=== PATIENT | female | born 1950 | race Caucasian/White ===

== ENCOUNTER → 2016-04-10 | Outpatient (CLI) | payer BC ==
[~2016-04-10] MED LIST: ABL/5 PO; ABL5 PO; ATV1 PO; BUPR-79 PO; CALC-51 PO; CALCTAB5 PO; CHOL1000 PO; LEVO137T3 PO; MULT-506 PO; OXYC1TAB3 PO; PANT40TA PO; PROM25TA PO; SYN150 PO
[2016-04-10 11:44] LABS: BASO % 0.1 %; BASO ABS # 0.01 K/uL (0-0.2); COMPLETE YES; EOS % 0.7 %; HEMATOCRIT 46.3 % (37-47); IG% 0.1 %; LYMPH % 29.4 %; LYMPH ABS # 2.02 K/uL (1.2-3.4); MEAN CELL VOLUME 86.7 fL (80-100); MEAN CORPUSCULAR HEMOGLOBIN 28.7 pg (25-34); MONO % 8.2 %; NEUT % 61.5 %; PLATELET COUNT 255 K/uL (130-400); RED BLOOD COUNT 5.34 M/uL (4.2-5.4); WHITE BLOOD COUNT 6.86 K/uL (4.8-10.8)
[2016-04-10 12:12] LABS: ALT/SGPT 32 U/L (12-78); BLOOD UREA NITROGEN 19 mg/dl (7-18); BUN/CREATININE RATIO 29.8 (10-20); CALCIUM 8.8 mg/dl (8.5-10.1); CARBON DIOXIDE 26 mmol/L (21-32); CHLORIDE 106 mmol/L (98-107); CHOLESTEROL 195 mg/dl (0-200); CREATININE 0.64 mg/dl (0.60-1.20); GLUCOSE 83 mg/dl (70-99); POTASSIUM 3.6 mmol/L (3.5-5.1); SODIUM 143 mmol/L (136-145); TRIGLYCERIDES 89 mg/dl (0-150); VERY LOW DENSITY LIPOPROT CALC 18 mg/dl
[2016-04-10 12:20] LABS: ESTIMATED AVERAGE GLUCOSE 117 mg/dl; HA1C FLAG Normal (Normal)
[2016-04-10 12:23] LABS: ALB/GLOB RATIO 1.2 (0.9-2); ALKALINE PHOSPHATASE 79 U/L (45-117); AST/SGOT 13 U/L (15-37); CHOLESTEROL/HDL RATIO 3.4; HDL CHOLESTEROL 58 mg/dl; LDL CHOLESTEROL CALCULATED 119 mg/dl; THYROID STIMULATING HORMONE 0.171 uIu/ml (0.300-4.500)
== END | disposition home or self-care (01) ==
LOC: C.LAB1850 10:36
PROVIDERS: ATTEND Internal Medicine Geriatric Medicine
DX: Z00.00 Encounter for general adult medical examination without abnormal findings (principal); R73.01 Impaired fasting glucose; C73 Malignant neoplasm of thyroid gland

== ENCOUNTER → 2016-05-02 | Outpatient (CLI) | payer BC | END | disposition home or self-care (01) | LOC: C.MAMM 07:56 | PROVIDERS: ATTEND Internal Medicine | DX: M81.0 Age-related osteoporosis without current pathological fracture (principal); M85.39 Osteitis condensans, multiple sites ==

== ENCOUNTER 2016-08-10 19:15 | Emergency (ER) | payer BC ==
[~2016-08-10] VITALS: Ht 162.6 cm; Wt 74.8 kg
[~2016-08-10 19:15] MED LIST changes: -ABL/5 PO; -CALC-51 PO; -CHOL1000 PO; -LEVO137T3 PO
[2016-08-10 19:20] VITALS: BP 165/73; PULSE 88; TEMP 36.7; O2SAT 95; Ht 162.6 cm; Wt 74.8 kg
--- NOTE | 2016-08-10 19:56 | DIAGNOSTIC IMAGING REPORT ---
LEFT FOREARM 2 VIEWS ROUTINE CLINICAL HISTORY: Left wrist pain s/p fall COMPARISON: None FINDINGS: There is an acute impacted minimally displaced fracture of the distal metaphysis of the left radius. There is no acute fracture of the left ulna. Alignment of left elbow is anatomic. There is no left elbow joint effusion. IMPRESSION: Acute impacted minimally displaced fracture of the distal metaphysis of the left radius. Electronically signed by: Joey Hubbard M.D. 08/10/2016 7:55 PM Dictated Date/Time: 08/10/2016 7:53 PM
--- NOTE | 2016-08-10 19:58 | DIAGNOSTIC IMAGING REPORT ---
LEFT HAND MIN 3 VIEWS ROUTINE CLINICAL HISTORY: Left hand pain COMPARISON: None FINDINGS: There is an acute impacted minimally displaced fracture of the distal metaphysis of the left radius. There is no acute fracture within the left hand. Carpal bones are intact. 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 IMPRESSION: Acute minimally displaced impacted distal left radial fracture. Electronically signed by: Joey Hubbard M.D. 08/10/2016 7:56 PM Dictated Date/Time: 08/10/2016 7:55 PM
[2016-08-10] MEDS ORDERED: IBUPROFEN 600 MG TAB PO STA (19:59)
[2016-08-10] MEDS ORDERED: ABL/5 PO (20:03)
[2016-08-10] MEDS ORDERED: CALC-51 PO ×2 (20:06)
[2016-08-10] MEDS ORDERED: LEVO137T3 PO (20:07)
[2016-08-10] MEDS ORDERED: CHOL1000 PO (20:10)
--- NOTE | 2016-08-10 20:18 | EMERGENCY ROOM VISIT NOTE ---
History First contact with patient: 19:25 Chief Complaint: WRIST PAIN Stated Complaint: HURT L WRIST History of Present Illness The patient is a 65 year old female who presents to the Emergency Room via private vehicle with complaints of "hurt left wrist". The patient states that earlier today, between 5 and 530 p.m. she was outside of the [employer] in [place], and fell over a cement barrier. She states that she has pain in her left hand and forearm region. This pain is worse with movement. Her tetanus is up-to-date. She also notes a small abrasion to the right anterior knee. She denies striking her head, or head pain. Review of Systems A complete 6-point Review of Systems was discussed with the patient, with pertinent positives and negatives listed in the History of Present Illness. All remaining Review of Systems questions can be considered negative unless otherwise specified. Past Medical/Surgical History No pertinent past medical history. Family History No pertinent family history. Social History Smoking Status: Never Smoker Social History: Patient lives locally. Current/Historical Medications Scheduled Aripiprazole (Abilify), 5 MG PO Q2D Bupropion (Wellbutrin Sr), 150 MG PO DAILY Cholecalciferol (Vitamin D3), 1 TAB PO BID Levothyroxine Sodium (Levothyroxine Sodium), 1 TAB PO DAILY Multivitamin (Multivitamin), 1 TAB PO DAILY [Calcium], 2 TABS PO QAM [Calcium], Unknown Dose PO QPM Allergies Coded Allergies: Aspirin (Verified Allergy, Unknown, 08/10/16) Physical Exam Vital Signs Date Time Temp Pulse Resp B/P (MAP) Pulse Ox O2 Delivery O2 Flow Rate FiO2 08/10/16 19:20 36.7 88 18 165/73 95 Room Air Physical Exam VITAL SIGNS - Vital signs and nursing notes were reviewed. Patient is afebrile , hypertensive at 165/73, nontoxic tachycardic and saturating well on room air 95%. GENERAL -65-year-old female appearing her stated age who is in no acute distress. Communicates well with provider and answers questions appropriately. SKIN - Without rashes. There is a small abrasion to the right anterior knee. The skin overlying the left wrist is edematous and erythematous. Skin is intact. EXTREMITIES - No clubbing or peripheral cyanosis. No pretibial edema present. She is neurovascularly intact in her upper extremity. There is edema noted to the right left wrist. There is tenderness to palpation overlying the left wrist joint. No other tenderness noted. +5/5 strength noted in UE/LE bilaterally. Medical Decision & Procedures ER Provider Diagnostic Interpretation: LEFT FOREARM 2 VIEWS ROUTINE CLINICAL HISTORY: Left wrist pain s/p fall COMPARISON: None FINDINGS: There is an acute impacted minimally displaced fracture of the distal metaphysis of the left radius. There is no acute fracture of the left ulna. Alignment of left elbow is anatomic. There is no left elbow joint effusion. IMPRESSION: Acute impacted minimally displaced fracture of the distal metaphysis of the left radius. Electronically signed by: Joey Hubbard M.D. 08/10/2016 7:55 PM Dictated Date/Time: 08/10/2016 7:53 PM LEFT HAND MIN 3 VIEWS ROUTINE CLINICAL HISTORY: Left hand pain COMPARISON: None FINDINGS: There is an acute impacted minimally displaced fracture of the distal metaphysis of the left radius. There is no acute fracture within the left hand. Carpal bones are intact. 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 IMPRESSION: Acute minimally displaced impacted distal left radial fracture. Electronically signed by: Joey Hubbard M.D. 08/10/2016 7:56 PM Dictated Date/Time: 08/10/2016 7:55 PM Medications Administered Medications (Trade) Dose Ordered Sig/Judy Route Start Time Stop Time Status Last Admin Dose Admin Ibuprofen (Motrin Tab) 600 mg NOW STAT PO 08/10/16 19:59 08/10/16 20:10 DC 08/10/16 20:10 600 MG Medical Decision Patient was seen and evaluated as above. After obtaining a thorough history and physical examination radiographs were obtained of the affected region. She initially declined pain medication. She did have ice. Radiograph does reveal any acute impact fracture of the left distal radius. She was given 600 mg of ibuprofen, which was ordered by another provider. She stated that this was okay. She was fitted with a volar splint. She is to follow-up with orthopedics by calling them tomorrow. Number was provided. She is neurovascularly intact. No other injuries noted. She was educated upon management, educated upon worrisome symptoms which to return, had questions answered prior to discharge, and was discharged home in good condition.. In the evaluation and treatment of this patient, the following differential diagnoses were considered: Wrist Sprain, Wrist Fracture, Wrist Dislocation, Scapholunate Dissociation, Carpal Fracture, Metacarpal Fracture, Radial Styloid Process Fracture, Ulnar Styloid Process Fracture, or Carpal Tunnel Syndrome. Impression Primary Impression: Distal radius fracture, left Departure Information Dispostion Home / Self-Care Condition GOOD Referrals Mehdi Webster M.D. Forms WORK / SCHOOL INSTRUCTIONS, HOME CARE DOCUMENTATION FORM, IMPORTANT VISIT INFORMATION Patient Instructions My [facility] [place] Additional Instructions You have been treated in the Emergency Department for Wrist Pain. For pain control, you can use the following [id number] medicines (if >12 yo): - Regular strength (325mg/tab) Tylenol (acetaminophen) 2 tabs every 4-6 hours as needed. Do not exceed 12 tablets in a 24 hour period. Avoid taking more than 3 grams (3000 mg) of Tylenol per day. This includes any other sources of acetaminophen you may take on a regular basis. - Regular strength (200 mg/tab) Advil (ibuprofen) 1-2 tabs every 4-6 hours as needed. Do not exceed a dose of 3200 mg per day. If this is a recent injury (<24 hrs), ice can be applied to the area of pain for the first 3 days to help decrease pain and inflammation. You have been provided the number for an Orthopaedic Surgeon. You should call this number as soon as possible to establish a follow-up visit from today's Emergency Department visit. Keep the brace/splint in place until evaluated by Orthopedics. Return to the Emergency Department if your current symptoms worsen despite treatment course outlined above, or if you develop any of the following symptoms : intractable pain despite aforementioned treatment course or new onset of numbness or tingling of the fingers. Please return to the emergency department with any new/concerning symptoms. Problem Qualifiers Primary Impression: Distal radius fracture, left Encounter type: initial encounter Fracture type: closed
== END 2016-08-10 20:46 | disposition home or self-care (01) ==
LOC: C.EDB 19:22 → C.EDD 20:46
DX: S52.502A Unspecified fracture of the lower end of left radius, initial encounter for closed fracture (principal); S80.211A Abrasion, right knee, initial encounter; W18.09XA Striking against other object with subsequent fall, initial encounter; Z79.899 Other long term (current) drug therapy

== ENCOUNTER → 2016-08-11 | Outpatient (CLI) | payer BC ==
[~2016-08-11] MED LIST changes: +ABL/5 PO; -ABL5 PO; -ATV1 PO; +CALC-51 PO; -CALCTAB5 PO; +CHOL1000 PO; +LEVO137T3 PO; -OXYC1TAB3 PO; -PANT40TA PO; -PROM25TA PO; -SYN150 PO
--- NOTE | 2016-08-11 14:31 | DIAGNOSTIC IMAGING REPORT ---
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 Transverse fracture distal radius is again noted. Alignment is anatomic. No evidence of dislocation. There is no evidence for soft tissue swelling. IMPRESSION: Anatomic alignment status post cortical fracture distal radius. Electronically signed by: Paco Ba M.D. 08/11/2016 2:30 PM Dictated Date/Time: 08/11/2016 2:28 PM
--- NOTE | 2016-08-11 14:36 | DIAGNOSTIC IMAGING REPORT ---
RIGHT WRIST MIN 3 VIEWS ROUTINE CLINICAL HISTORY: BILATERAL WRIST PAIN Right COMPARISON: None. DISCUSSION: Considerable degenerative change first carpometacarpal joint. Mild degenerative change of the intercarpal as well as radiocarpal joints. No evidence for fracture or dislocation. There is no evidence for soft tissue swelling. IMPRESSION: Severe degenerative change first carpometacarpal joint. Electronically signed by: Paco Ba M.D. 08/11/2016 2:35 PM Dictated Date/Time: 08/11/2016 2:34 PM
== END | disposition home or self-care (01) ==
LOC: C.RDSM 14:10
PROVIDERS: ATTEND Physician Assistant
DX: M25.531 Pain in right wrist (principal); M25.532 Pain in left wrist

== ENCOUNTER → 2016-08-21 | Outpatient (CLI) | payer BC ==
--- NOTE | 2016-08-21 14:11 | DIAGNOSTIC IMAGING REPORT ---
LEFT WRIST MIN 3 VIEWS ROUTINE CLINICAL HISTORY: LEFT WRIST FX fracture COMPARISON: 08/11/2016 DISCUSSION: Anatomic alignment status post fracture. Fracture distal radius is aligned anatomically. No evidence of dislocation. There is no evidence for soft tissue swelling. IMPRESSION: Anatomic alignment status post distal radial fracture. Electronically signed by: Paco Ba M.D. 08/21/2016 2:10 PM Dictated Date/Time: 08/21/2016 2:09 PM
== END | disposition home or self-care (01) ==
LOC: C.RDSM 13:55
PROVIDERS: ATTEND Physician Assistant
DX: S52.509A Unspecified fracture of the lower end of unspecified radius, initial encounter for closed fracture (principal); X58.XXXA Exposure to other specified factors, initial encounter

== ENCOUNTER → 2016-09-11 | Outpatient (CLI) | payer BC ==
--- NOTE | 2016-09-11 11:00 | DIAGNOSTIC IMAGING REPORT ---
LEFT WRIST MIN 3 VIEWS ROUTINE HISTORY:65 yearsFemaleLEFT DISTAL RADIUS FX COMPARISON: Left wrist radiographs 08/21/2016 TECHNIQUE: 3 views of left wrist FINDINGS: There is progressive healing callus formation of the distal radius fracture of the left wrist with persistent cortical buckling identified. Alignment is unchanged from comparison. There is background moderate bone demineralization. Multiple moderate carpal osteoarthritis is noted with moderate triscaphe and first digit carpometacarpal osteoarthritis as well. There is moderate soft tissue swelling about the wrist. IMPRESSION: 1. Progressive healing with unchanged alignment of the distal radial fracture. 2. Degenerative changes are seen about the wrist and first digit carpometacarpal joint. The above report was generated using voice recognition software. It may contain grammatical, syntax or spelling errors. Electronically signed by: Haroon Montes M.D. 09/11/2016 10:59 AM Dictated Date/Time: 09/11/2016 10:57 AM
== END | disposition home or self-care (01) ==
LOC: C.RDSM 10:28
PROVIDERS: ATTEND Physician Assistant
DX: S52.502D Unspecified fracture of the lower end of left radius, subsequent encounter for closed fracture with routine healing (principal); X58.XXXD Exposure to other specified factors, subsequent encounter

== ENCOUNTER → 2016-09-25 | Outpatient (CLI) | payer BC ==
--- NOTE | 2016-09-25 09:16 | DIAGNOSTIC IMAGING REPORT ---
LEFT WRIST MIN 3 VIEWS ROUTINE CLINICAL HISTORY: LEFT WRIST FX COMPARISON STUDY: Left wrist 09/11/2016. FINDINGS: Progressive sclerosis within the distal left radius fracture consistent with healing. The slight impaction remains unchanged. No change in the mild dorsal displacement. Diffuse soft tissue swelling, unchanged. Mild osteoarthritis at the radiocarpal, STT, and first carpometacarpal joint. The bones are osteopenic. IMPRESSION: Progressive healing and unchanged alignment of the distal radius fracture. Electronically signed by: Brian Lucero M.D. 09/25/2016 9:15 AM Dictated Date/Time: 09/25/2016 9:13 AM
== END | disposition home or self-care (01) ==
LOC: C.RDSM 14:59
PROVIDERS: ATTEND Physician Assistant
DX: S52.502D Unspecified fracture of the lower end of left radius, subsequent encounter for closed fracture with routine healing (principal); X58.XXXA Exposure to other specified factors, initial encounter

== ENCOUNTER → 2016-10-16 | Outpatient (CLI) | payer BC ==
--- NOTE | 2016-10-16 09:04 | DIAGNOSTIC IMAGING REPORT ---
LEFT WRIST MIN 3 VIEWS ROUTINE HISTORY: 65 years-old Female follow-up distal left radius fracture COMPARISON: Left wrist radiographs 09/25/2016 TECHNIQUE: 3 views of the left wrist FINDINGS: Bones are moderately demineralized. There is mildly progressive healing callus surrounding the fracture of the left distal radial metaphysis. Alignment is unchanged. There is again slight impaction. There is mild persistent soft tissue swelling about the wrist. Severe first carpometacarpal osteoarthritis with moderate triscaphe osteoarthritis noted. IMPRESSION: Mild progressive healing with unchanged alignment of the left distal radial fracture with persistent mild soft tissue swelling. The above report was generated using voice recognition software. It may contain grammatical, syntax or spelling errors. Electronically signed by: Haroon Montes M.D. 10/16/2016 9:03 AM Dictated Date/Time: 10/16/2016 9:01 AM
== END | disposition home or self-care (01) ==
LOC: C.RDSM 14:34
PROVIDERS: ATTEND Physician Assistant
DX: S52.502D Unspecified fracture of the lower end of left radius, subsequent encounter for closed fracture with routine healing (principal); X58.XXXD Exposure to other specified factors, subsequent encounter

== ENCOUNTER → 2016-11-27 | Outpatient (CLI) | payer BC ==
--- NOTE | 2016-11-27 12:34 | MAMMOGRAPHY REPORT ---
BILATERAL DIGITAL SCREENING MAMMOGRAM WITH CAD: 11/27/2016 CLINICAL HISTORY: Routine screening. Patient has no complaints. TECHNIQUE: Bilateral CC, MLO and repeat right MLO views were obtained. Current study was also evalua james with a Computer Aided Detection (CAD) system. COMPARISON: Comparison is made to exams dated: 11/25/2015 mammogram, 11/23/2014 mammogram, 11/21/2013 m ammogram, 11/20/2012 mammogram, 11/24/2011 mammogram, and 11/20/2011 mammogram - [facility] enter. BREAST COMPOSITION: The tissue of both breasts is heterogeneously dense, which may obscure small mas ses. FINDINGS: There is a 7 mm nodular asymmetry in the lateral posterior right breast, best seen on the CC view thought to project superiorly on the MLO view. Although this could represent normal overlapp ing fibroglandular tissue, additional spot compression tomosynthesis views and possibly ultrasound ar e recommended. A 10 mm focal asymmetry in the upper outer posterior left breast could represent a cy st. However, further evaluation with spot compression tomosynthesis views and possible ultrasound ar e recommended. There is evidence of prior surgery in the left breast. A few benign coarse calcifications bilaterall y. No other suspicious mass, architectural distortion or cluster of suspicious microcalcifications i s seen bilaterally. IMPRESSION: ACR BI-RADS CATEGORY 0: INCOMPLETE EVALUATION: NEED ADDITIONAL IMAGING EVALUATION The 7 mm nodular asymmetry in the lateral posterior right breast, and 10 mm focal asymmetry in the up per outer posterior left breast need additional imaging evaluation. The patient will be called to schedule an appointment. Approximately 10% of breast cancers are not detected with mammography. A negative mammographic report should not delay biopsy if a clinically suggestive mass is present. Lynette Bae M.D. ay/:11/27/2016 12:10:40 Intern Brand: Amanda ALCARAZ(Tiffany)(Jazmine)(BD), [facility] letter sent: Addl Imaging 0 BI-RADS Code: ACR BI-RADS Category 0: Incomplete Evaluation: Need Additional Imaging Evaluation
== END | disposition home or self-care (01) ==
LOC: C.MAMM 11:07
PROVIDERS: ATTEND Internal Medicine
DX: Z12.31 Encounter for screening mammogram for malignant neoplasm of breast (principal); N64.9 Disorder of breast, unspecified

== ENCOUNTER → 2016-12-06 | Outpatient (CLI) | payer BC ==
--- NOTE | 2016-12-06 13:39 | MAMMOGRAPHY REPORT ---
BILATERAL DIGITAL DIAGNOSTIC MAMMOGRAM TOMOSYNTHESIS AND TARGETED BILATERAL ULTRASOUND: 12/06/2016 CLINICAL HISTORY: 66-year-old woman called back from screening mammography for asymmetries in each la teral breast. History of prior left breast surgery. TECHNIQUE: Spot compression CC and MLO 2-D and tomosynthesis images of each breast were obtained. COMPARISON: Comparison is made to exams dated: 11/27/2016 mammogram, 11/25/2015 mammogram, 11/23/2014 m ammogram, 11/21/2013 mammogram, 11/20/2012 mammogram, and 11/24/2011 mammogram - [facility] enter. BREAST COMPOSITION: The tissue of both breasts is heterogeneously dense, which may obscure small mas ses. FINDINGS: On the spot compression tomosynthesis views of the right breast, there is persistence of a n asymmetry on the 2-D view, but no definite persistent mass or definite architectural distortion on the corresponding tomosynthesis images. There are other scattered benign-appearing round and oval ci rcumscribed subcentimeter masses throughout the right breast. No definite focal architectural distor tion or suspicious spiculated or irregular mass. The spot compression views and tomosynthesis images of the left breast demonstrate a persistent 8 x 1 3 mm bilobed circumscribed mass in the upper outer middle one third of the breast. No associated arc hitectural distortion or calcification. A few other scattered nodular areas are also seen in the lef t breast that have a benign appearance. Further evaluation with ultrasound was performed. Targeted ultrasound was performed in the left upper outer quadrant and throughout the lateral right b reast. In the 3:00 left breast, 8 cm from the nipple, there is a dominant circumscribed round mass m easuring 6.5 mm. It is prominently anechoic with internal echogenic debris and mild posterior acoust ic enhancement. This is adjacent to a possible cyst cluster measuring 9.9 mm in dimension. This is thought to correspond to the mammographic mass. Although it could represent a complicated cyst, give n the internal echoes within the dominant cystic component, definitive characterization with an ultra sound-guided core needle biopsy is recommended. A few other scattered subcentimeter anechoic cysts a re seen in the left breast, particularly in the 5:00 axis, 4 cm from the nipple and in the 5:00 axis, 2 cm from the nipple, also in the 6:00 axis 1 and 2 cm from the nipple. Scattered anechoic cysts are also seen throughout the right breast particularly in the 11:00 and 12:0 0 axes. However, no suspicious solid or cystic mass is seen. No definite correlate for the effacing asymmetry in the lateral breast. IMPRESSION: ACR BI-RADS CATEGORY 4: SUSPICIOUS, TARGETED ULTRASOUND ACR BI-RADS CATEGORY 4: SUSPICIO US 1. Ultrasound guided core needle biopsy is recommended for an indeterminate solid and cystic 13 mm m ass in the 3:00 left breast, thought to correlate with the mammographic mass. 2. Partial effacement of the right lateral posterior asymmetry with supplemental mammographic/tomosy nthesis views, and no suspicious sonographic correlate identified. Pending benign pathology results from the left breast ultrasound guided biopsy, would recommend follow-up right diagnostic tomosynthes is mammograms and possible ultrasound to ensure stability in 6 months. These results and recommendations were discussed with the patient at the time of the exam. She tenta tively scheduled the biopsy and follow-up appointment prior to leaving our department. Approximately 10% of breast cancers are not detected with mammography. A negative mammographic report should not delay biopsy if a clinically suggestive mass is present. Lynette Bae M.D. ay/:12/06/2016 12:24:46 Web Operations Administrator: Nicolette ALCARAZ(Tiffany)(M), [facility] letter sent: Abnormal 4/5 BI-RADS Code: ACR BI-RADS Category 4: Suspicious Ultrasound BI-RADS: ACR BI-RADS Category 4: Suspici ous
== END | disposition home or self-care (01) ==
LOC: C.MAMM 08:50
PROVIDERS: ATTEND Internal Medicine
DX: N64.9 Disorder of breast, unspecified (principal); N63.20 Unspecified lump in the left breast, unspecified quadrant

== ENCOUNTER → 2016-12-15 | Outpatient (CLI) | payer BC ==
--- NOTE | 2016-12-15 10:09 | Discharge Instructions ---
Discharge Instructions Procedure Procedure Date: Dec 15, 2016. Reason for visit: Left Mass. Discharge Discharge Date: Dec 15, 2016. Discharge Diagnosis: status post breast biopsy Instructions Activity Recommendations: Additional Limitations (see below) Return to School/Work: no limitations Recommended Home Diet: No Limitations Provider Instructions: ACTIVITY RECOMMENDATIONS: * No lifting, pushing, pulling or exercising the affected side for three days. RETURN TO SCHOOL/WORK: * You may return to work/school after the procedure, but do not perform any strenuous activities for 24 to 48 hours. MEDICATIONS: * Tylenol (two 325 mg) every four to six hours if needed for mild pain (if not allergic to Tylenol). DIET: * Resume previous diet. SPECIAL CARE INSTRUCTIONS: * Keep biopsy site dry for 24 hours. May shower after 24 hours, but do not soak (bathe) incision. * May remove Tegaderm (plastic patch) tomorrow AFTER showering. * Leave the steri-strips on for one week. Allow the steri-strips to fall off by themselves. If not off after one week, you may remove them. You may place a Bandaid crosswise over the strips, if desired. * Apply ice 10 minutes on and 10 minutes off as needed. * Wear a bra at bedtime to sleep more comfortably for 2-3 days. * Your referring physician should have the results after approximately 5 to 7 business days. * Call for unusual bleeding, fever, drainage, etc or if you have any questions call during normal business hours or after hours call Dr Love, . FOLLOW UP VISIT: Follow-up with Referring Physician as scheduled. Allergies Coded Allergies: Aspirin (Verified Allergy, Unknown, 08/10/16) Otilio Shields Recommendations: Call your doctor if: * Temperature above 101 degrees * Pain not relieved by pain medicine ordered * There is increased drainage or redness from any incision * You have any unanswered questions or concerns. Your Doctors Instructions noted above were prepared by provider Cherie Love. Patient Signature Section: Patient Instructions Signature Page Mariaelena Haynes Patient (or Guardian) Signature/Date: I have read and understand the instructions given to me by my caregivers. Caregiver/RN/Doctor Signature/Date: The above-named patient and/or guardian has received patient instructions on this date. + Original Patient Signature Page (only) stays with chart. Please make copy for patient.
--- NOTE | 2016-12-15 13:41 | MAMMOGRAPHY REPORT ---
ULTRASOUND GUIDED BIOPSY LEFT BREAST: 12/15/2016 CLINICAL HISTORY: Left 3:00 breast mass. PATIENT CONSENT: The procedure, risks and benefits were discussed with the patient and informed writt en consent was obtained. A timeout was performed immediately prior to the procedure. PROCEDURE DESCRIPTION: With ultrasound guidance, aseptic technique, and lidocaine as the local anesth etic (1% lidocaine to anesthetize the skin and 1% lidocaine with epinephrine to anesthetize the deepe r tissues), the mass of concern in the left 3:00 breast was sampled 3 times with a 14-gauge Achieve b iopsy needle. The mass decreased in size with each subsequent pass. Immediately thereafter, with ult rasound guidance, aseptic technique, and lidocaine as the local anesthetic, a metallic localizer clip was placed at the biopsy site. Direct pressure was applied to the site immediately post procedure a nd hemostasis was achieved. Postprocedure unilateral mammograms were performed to confirm placement of the clip in the expected location of the breast mass. The patient tolerated the procedure without complication. She was given wound care instructions. The specimens were sent to pathology for giselle sis. COMPARISON: Comparison is made to exams dated: 12/06/2016 ultrasound, 12/06/2016 mammogram, 7 mammogram, 11/25/2015 mammogram, 11/23/2014 mammogram, and 11/21/2013 mammogram - [facility]. IMPRESSION: ULTRASOUND GUIDED BIOPSY Ultrasound guided core needle biopsy of the left 3:00 breast mass, with clip placement. The patient will receive pathology results from her referring provider. Cherie Love M.D. ah/:12/15/2016 10:10:28 Attending Technologist: Zeina ALCARAZ(R)(M), [facility] Safety Professional: Cherie Love MD, [facility]
--- NOTE | 2016-12-15 13:44 | MAMMOGRAPHY REPORT ---
UNILATERAL LEFT DIGITAL DIAGNOSTIC MAMMOGRAM TOMOSYNTHESIS: 12/15/2016 CLINICAL HISTORY: Status post ultrasound-guided biopsy of a left 3:00 breast mass. TECHNIQUE: Breast tomosynthesis in addition to standard 2D mammography was performed. Postprocedura l left CC and LM tomosynthesis images including CC views and a 2-D left X CCL view were obtained. COMPARISON: Comparison is made to exams dated: 12/06/2016 ultrasound, 12/06/2016 mammogram, 7 mammogram, 11/25/2015 mammogram, 11/23/2014 mammogram, and 11/21/2013 mammogram - [facility]. BREAST COMPOSITION: The tissue of the left breast is heterogeneously dense, which may obscure small masses. FINDINGS: A new biopsy marker clip is seen in the left breast status post ultrasound guided biopsy o f a left 3:00 breast mass. The clip is located at the site of the original mammographic mass, indica ting good correlation between the biopsied sonographic mass and the mammographic mass. No significan t postbiopsy hematoma is seen. IMPRESSION: POST PROCEDURE IMAGING FOR MARKER PLACEMENT New biopsy marker clip status post left breast ultrasound-guided biopsy. Pathology results are pendi ng. Approximately 10% of breast cancers are not detected with mammography. A negative mammographic report should not delay biopsy if a clinically suggestive mass is present. Cherie Love M.D. ah/:12/15/2016 10:19:40 Laundry Marker Supervisor: Zeina ALCARAZ(R)(M), [facility] BI-RADS Code: Post Procedure Imaging For Marker Placement
== END | disposition home or self-care (01) ==
LOC: C.MAMM 09:23
PROVIDERS: ATTEND Internal Medicine
DX: N60.92 Unspecified benign mammary dysplasia of left breast (principal)

== ENCOUNTER → 2017-05-09 | Outpatient (CLI) | payer BC ==
[2017-05-09 12:26] LABS: BASO % 0.3 %; BASO ABS # 0.02 K/uL (0-0.2); EOS % 0.8 %; EOS ABS # 0.06 K/uL (0-0.5); HEMATOCRIT 44.1 % (37-47); HEMOGLOBIN 14.6 g/dL (12.0-16.0); IG# 0.02 K/uL (0.00-0.02); LYMPH % 26.9 %; LYMPH ABS # 2.02 K/uL (1.2-3.4); MEAN CELL VOLUME 87.3 fL (80-100); MEAN CORPUSCULAR HEMOGLOBIN 28.9 pg (25-34); MEAN CORPUSCULAR HGB CONC 33.1 g/dl (32-36); MEAN PLATELET VOLUME 11.1 fL (7.4-10.4); MONO % 9.2 %; MONO ABS # 0.69 K/uL (0.11-0.59); NEUT % 62.5 %; PLATELET COUNT 271 K/uL (130-400); RED CELL DISTRIBUTION WIDTH CV 14.2 % (11.5-14.5); RED CELL DISTRIBUTION WIDTH SD 45.7 fL (36.4-46.3); WHITE BLOOD COUNT 7.51 K/uL (4.8-10.8)
[2017-05-09 12:47] LABS: HEMOGLOBIN A1C 5.9 % (4.5-5.6)
[2017-05-09 13:02] LABS: ALBUMIN 3.7 gm/dl (3.4-5.0); ALT/SGPT 37 U/L (12-78); AST/SGOT 14 U/L (15-37); BLOOD UREA NITROGEN 12 mg/dl (7-18); CALCIUM 8.6 mg/dl (8.5-10.1); CARBON DIOXIDE 27 mmol/L (21-32); CREATININE 0.63 mg/dl (0.60-1.20); GLUCOSE 94 mg/dl (70-99); POTASSIUM 3.8 mmol/L (3.5-5.1); SODIUM 141 mmol/L (136-145)
[2017-05-09 13:13] LABS: ALKALINE PHOSPHATASE 79 U/L (45-117); CHOLESTEROL 185 mg/dl (0-200); LDL CHOLESTEROL CALCULATED 112 mg/dl
== END | disposition home or self-care (01) ==
LOC: C.LAB1850 09:47
PROVIDERS: ATTEND Internal Medicine
DX: C73 Malignant neoplasm of thyroid gland (principal); F41.8 Other specified anxiety disorders; M81.0 Age-related osteoporosis without current pathological fracture; R73.01 Impaired fasting glucose; F09 Unspecified mental disorder due to known physiological condition; G40.909 Epilepsy, unspecified, not intractable, without status epilepticus; K21.9 Gastro-esophageal reflux disease without esophagitis; K44.9 Diaphragmatic hernia without obstruction or gangrene

== ENCOUNTER → 2017-05-23 | Outpatient (CLI) | payer BC ==
[2017-05-23 10:50] LABS: CALCIUM 8.7 mg/dl (8.5-10.1); CREATININE 0.58 mg/dl (0.60-1.20)
== END | disposition home or self-care (01) ==
LOC: C.LAB1850 09:03
PROVIDERS: ATTEND Internal Medicine Rheumatology
DX: Z87.442 Personal history of urinary calculi (principal); M80.00XA Age-related osteoporosis with current pathological fracture, unspecified site, initial encounter for fracture; E61.8 Deficiency of other specified nutrient elements

== ENCOUNTER → 2017-06-25 | Outpatient (CLI) | payer BC ==
--- NOTE | 2017-06-26 12:45 | MAMMOGRAPHY REPORT ---
UNILATERAL RIGHT DIGITAL DIAGNOSTIC MAMMOGRAM TOMOSYNTHESIS WITH CAD AND TARGETED RIGHT ULTRASOUND: CLINICAL HISTORY: 66-year-old woman presents for follow-up in the right breast for a nodular asymmetr y in the lateral posterior breast on the cc view. She underwent ultrasound-guided core biopsy of a m ass in the 3:00 left breast on December 15, 2016 which yielded benign pathology results. TECHNIQUE: Right breast tomosynthesis in addition to standard 2D mammography was performed. Current study was also evaluated with a Computer Aided Detection (CAD) system. COMPARISON: Comparison is made to exams dated: 12/15/2016 mammogram, 12/06/2016 ultrasound, 12/07/19 17 mammogram, 11/27/2016 mammogram, 11/25/2015 mammogram, and 11/23/2014 mammogram - [facility]. BREAST COMPOSITION: The tissue of the right breast is heterogeneously dense, which may obscure small masses. FINDINGS: A previously observed 7 mm nodular asymmetry in the lateral, posterior right breast on the cc view does not definitely persist on the current 2D or tomosynthesis images. However, there is a q uestionable area of architectural distortion in the slightly lateral, posterior right breast on the C C tomosynthesis images, not definitely seen on the MLO tomosynthesis images, for which further evalua tion with ultrasound was performed throughout the lateral right breast. No other obvious masses, asy mmetries, areas of architectural distortion or suspicious microcalcifications identified. Targeted ultrasound was performed in the lateral right breast. Scattered anechoic benign simple cyst s are identified, most numerous in the 12:00 and 6:00 axes, all measuring less than 1 cm. There is a n ill-defined hypoechoic shadowing area in the 10:00 right breast, 4 cm from the nipple which may pos sibly correspond with the possible mammographic distortion, although normal shadowing glandular tissu e could appear similar. Therefore, definitive characterization with a breast MRI is recommended to a ssess for any possible enhancement in the right upper outer quadrant and exclude the possibility of a suspicious enhancing mass or non-mass enhancement. IMPRESSION: ACR BI-RADS CATEGORY 0: INCOMPLETE EVALUATION: NEED ADDITIONAL IMAGING EVALUATION, TARG ETED ULTRASOUND ACR BI-RADS CATEGORY 0: INCOMPLETE EVALUATION: NEED ADDITIONAL IMAGING EVALUATION No definite persistent nodular asymmetry in the lateral, posterior right breast on the cc view, but a possible area of architectural distortion in the slightly lateral and posterior right breast without definite sonographic correlate, although a hypoechoic shadowing area is seen in the 10:[address] on ultrasound. Although this could represent normal shadowing fibroglandular tissue, a subtle les ion such as radial scar or carcinoma could appear similar. Therefore, definitive characterization wi th a contrast-enhanced bilateral breast breast MRI is recommended. These results and recommendations were discussed with the patient at the time of the exam. Approximately 10% of breast cancers are not detected with mammography. A negative mammographic report should not delay biopsy if a clinically suggestive mass is present. Lynette Bae M.D. ay/:06/25/2017 15:39:50 Clinic Supervisor: Katherine INGRAM)(Jazmine), [facility] letter sent: Addl Imaging 0 BI-RADS Code: ACR BI-RADS Category 0: Incomplete Evaluation: Need Additional Imaging Evaluation Ult rasound BI-RADS: ACR BI-RADS Category 0: Incomplete Evaluation: Need Additional Imaging Evaluation
== END | disposition home or self-care (01) ==
LOC: C.MAMM 07:40
PROVIDERS: ATTEND Internal Medicine
DX: Z09 Encounter for follow-up examination after completed treatment for conditions other than malignant neoplasm (principal)

== ENCOUNTER → 2017-07-07 | Outpatient (CLI) | payer BC ==
[2017-07-07 13:18] LABS: BLOOD UREA NITROGEN 12 mg/dl (7-18); CREATININE 0.69 mg/dl (0.60-1.20)
== END | disposition home or self-care (01) ==
LOC: C.LAB1850 11:01
PROVIDERS: ATTEND Internal Medicine
DX: Z00.00 Encounter for general adult medical examination without abnormal findings (principal)

== ENCOUNTER → 2017-07-10 | Outpatient (CLI) | payer BC ==
[~2017-07-10] MED LIST changes: +GADAVIST IV PRN
--- NOTE | 2017-07-11 15:24 | MAMMOGRAPHY REPORT ---
BREAST MRI OF BOTH BREASTS : 07/10/2017 CLINICAL HISTORY: 66-year-old woman initially called back from screening mammography in November 2016 for 7 mm nodular asymmetry in the lateral, posterior right breast and 10 mm focal asymmetry in the up per outer posterior left breast. Additional diagnostic mammograms and ultrasound demonstrated a mass in the 3:00 left breast which was biopsied and yielded benign pathology results. Patient presented for additional follow-up of the right breast for the nodular asymmetry. Most recent diagnostic mammo gram and ultrasound dated 06/25/2017 demonstrating effacement of the nodular asymmetry but a new quest ionable area of architectural distortion in the lateral right breast. No sonographic correlate was s een and therefore a breast MRI was recommended. COMPARISON: Comparison is made to exams dated: 11/20/2012 mammogram, 11/21/2013 mammogram, 11/23/2014 m ammogram, 11/25/2015 mammogram, 11/27/2016 mammogram, and 12/06/2016 mammogram - [facility]. TECHNIQUE: Using a 1.5 Vanessa magnet and dedicated breast coil, multisequence axial images were obtain ed through the breasts. After uneventful IV administration of 7 mL of Gadavist, dynamic multiphase c ontrast-enhanced axial images, and sagittal postcontrast were obtained. Temporal subtraction axial i mages and 3-D MIP images are provided. Everything was then reviewed on a 3-D workstation, [employer]. FINDINGS: There is mild background parenchymal enhancement. There are a few scattered subcentimeter cysts in t he breasts. There is a small focus of susceptibility artifact in the 3:00 posterior left breast (axi al page 73/120), denoting the site of prior benign ultrasound-guided core biopsy. There is no eviden ce of a suspicious enhancing mass, suspicious non-mass enhancement, architectural distortion or suspi cious kinetics in either breast. Particularly, there is no evidence of a suspicious mass or area of architectural distortion in the lateral right breast, to correspond with the questionable mammogram/t omosynthesis findings. Therefore, these findings are considered benign and no further close follow-u p is needed at this time. No suspicious axillary, pectoral or internal mammary lymphadenopathy identified. Incidental note is made of an oval circumscribed 8 mm T2 hyperintense, nonenhancing cyst in the later al segment of the left hepatic lobe. IMPRESSION: ACR BI-RADS CATEGORY 2: BENIGN There is no MRI evidence of malignancy in the breasts. No suspicious enhancing mass or non-mass enha ncement to correspond with the questionable area of architectural distortion or nodular asymmetry in the lateral right breast. These findings are considered benign and no further close follow-up is nee ded at this time. Recommend return to annual screening mammography schedule, which is due in November 2017. The patient will receive written notification of the results. Lynette Bae M.D. 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
== END | disposition home or self-care (01) ==
LOC: C.MRI 10:30
PROVIDERS: ATTEND Internal Medicine
DX: R92.8 Other abnormal and inconclusive findings on diagnostic imaging of breast (principal)

== ENCOUNTER → 2017-09-13 | Outpatient (CLI) | payer BC ==
[~2017-09-13] MED LIST changes: -GADAVIST IV PRN
--- NOTE | 2017-09-13 16:44 | DIAGNOSTIC IMAGING REPORT ---
LUMBAR SPINE MIN 4 VIEWS HISTORY: Pain LOW BACK PAIN COMPARISON: None. FINDINGS: There is no fracture. No subluxation. Mild degenerative disc change. Mild degenerative changes inferior sacroiliac joints bilaterally. IMPRESSION: No fracture or subluxation within the lumbar spine. Mild degenerative disc change. Degenerative change sacroiliac joints. The above report was generated using voice recognition software. It may contain grammatical, syntax or spelling errors. Electronically signed by: Paco Ba M.D. 09/13/2017 4:43 PM Dictated Date/Time: 09/13/2017 4:42 PM
== END | disposition home or self-care (01) ==
LOC: C.RDSM 15:41
PROVIDERS: ATTEND Physician Assistant
DX: M54.5 Low back pain (principal); Z88.6 Allergy status to analgesic agent

== ENCOUNTER 2023-11-06 14:00 | Observation (INO) ==
[2023-11-06] MEDS: OPTIRAY 320 125ml IV ONE (14:36)
--- NOTE | 2023-11-06 14:59 | CT Scan Report ---
CT OF THE HEAD WITHOUT CONTRAST CLINICAL HISTORY: neuro deficit, acute stroke suspected COMPARISON STUDY: No previous studies for comparison. CT DOSE: 1115.87 mGy.cm TECHNIQUE: Helical axial images of the head were obtained without IV contrast. Automated exposure con trol was utilized for the study. A dose lowering technique was utilized adhering to the principles o f ALARA. FINDINGS: There is no acute intracranial hemorrhage. Note is made of a CSF attenuation 7.9 x 5 cm abn ormality which appears to communicate with the atrium of the right lateral ventricle. There is mild v entricular dilatation. The basal cisterns are patent. Note is made of a hyperdense 3.9 x 2.5 cm extra -axial density overlying the posterior aspect the right cerebellar hemisphere on image 8 of 20. There is mild adjacent hypodensity. There is mild mass effect with slight effacement of the fourth ventric le. There are no findings to suggest acute dural sinus thrombosis or acute territorial infarct. IMPRESSION: 1. No acute intracranial hemorrhage. 2. 3.9 x 2.5 cm hyperdense extra-axial lesion overlying the posterior right cerebellar hemisphere. Th is favors a meningioma. Adjacent hypodensity suggests mild vasogenic edema. Mild associated mass effe ct. An MRI of the brain with and without contrast could be obtained for further evaluation. 3. 7.9 x 5 cm CSF attenuation abnormality which appears to communicate with the atrium of the right l ateral ventricle. This favors a porencephalic cyst. ACT 112: Negative or not required by law. Electronically signed by: Joey Hubbard M.D. 11/06/2023 2:58 PM
--- NOTE | 2023-11-06 15:01 | CT Scan Report ---
NECK CTA HISTORY: neuro deficit, acute stroke suspected TECHNIQUE: Multiaxial CT images of the neck were performed following the intravenous administration o f contrast to evaluate the major cervical vessels. 3D/MIP images were also obtained. Sagittal and cor onal reformats were reviewed. All measurements were calculated based on NASCET criteria. A dose low ering technique was utilized adhering to the principles of ALARA. COMPARISON STUDY: None. FINDINGS: The aortic arch and proximal great vessels are widely patent. There is no significant sten osis, occlusion, or dissection identified within the bilateral common carotid, internal carotid, or v ertebral arteries. IMPRESSION: No significant stenosis, occlusion, or dissection identified within the carotid or vertebral arteries . ACT 112: Negative or not required by law. Electronically signed by: Brian Lucero M.D. 11/06/2023 3:00 PM
[2023-11-06 15:02] LABS: Basophils # (auto) 0.03 K/uL (0.00-0.20); Basophils % (auto) 0.4 %; Eosinophils # (auto) 0.19 K/uL (0.00-0.50); Eosinophils % (auto) 2.3 %; Hematocrit (blood only) 45.5 % (37.0-47.0); Hemoglobin 14.9 g/dl (12.0-16.0); Immature Granulocytes # (auto) 0.03 K/uL (0.01-0.20); Immature Granulocytes % (auto) 0.4 %; Lymphocytes # (auto) 2.25 K/uL (1.20-3.40); Lymphocytes % (auto) 27.1 %; Mean Corpuscular Hemoglobin 27.7 pg (25.0-34.0); Mean Corpuscular Hgb Conc 32.7 g/dL (32.0-36.0); Mean Corpuscular Volume 84.7 fL (80.0-100.0); Mean Platelet Volume 10.9 fL (9.4-12.4); Monocytes # (auto) 0.86 K/uL (0.11-0.59); Monocytes % (auto) 10.4 %; Neutrophils # (auto) 4.93 K/uL (1.40-6.50); Neutrophils % (auto) 59.4 %; Platelet Count 277 K/uL (130-400); RDW Coefficient of Variation 13.8 % (11.5-14.5); RDW Standard Deviation 42.5 fL (36.4-46.3); Red Blood Count 5.37 M/uL (4.20-5.40); White Blood Count 8.29 K/ul (4.8-10.8)
--- NOTE | 2023-11-06 15:06 | CT Scan Report ---
CT angio head w con CLINICAL HISTORY: neuro deficit, acute stroke suspected TECHNIQUE: CT angiography of the head and neck was performed following intravenous administration of iodinated contrast. Coronal and sagittal MIPS were obtained from the axial data set and were submitt ed for review. Automated dose lowering techniques and/or adjustment according to patient size were u tilized for this examination. All measurements were calculated based on NASCET criteria. Comparison: Comparison is made to CT head 11/06/2023 FINDINGS: CTA Head: The anterior and posterior cerebral circulations are patent. Basilar tip aneurysm measures 2 mm. Partial visualization of ventriculomegaly and marked dilation of the right occipital horn. Par tial visualization of a meningioma which is better seen on CT head. IMPRESSION: 1. No occlusion, hemodynamically significant stenosis, dissection, or arteriovenous malformation in the major intracranial arteries. 2. 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 Assessment of stenosis of the internal carotid arteries is based on NASCET criteria. ACT 112: Negative or not required by law. Electronically signed by: Juan Manuel Fischer M.D. 11/06/2023 3:04 PM
[2023-11-06 15:15] LABS: Albumin Level 4.5 gm/dl (3.4-5.0); Bilirubin,Total 0.3 mg/dl (0.2-1.0); Calcium 9.1 mg/dl (8.6-10.3); Magnesium 1.9 mg/dl (1.7-2.4); Potassium 3.5 mmol/L (3.5-5.1)
[2023-11-06 15:21] LABS: BUN Creatinine Ratio 23.4 (10-20); Creatinine Clr Calc Pharmacy 77.4 ml/min; Est GFR (African American) 101.9 ml/min; Est GFR (Non-African American) 87.9 ml/min; Globulin 2.3 gm/dl (2.5-4.0); Total Protein 6.8 gm/dl (6.0-8.3)
[2023-11-06 15:26] LABS: Partial Thromboplastin Time 28 Seconds (21-31); Prothrombin Time 10.5 Seconds (9.0-12.0)
--- NOTE | 2023-11-06 15:44 | Electrocardiogram Report ---
Test Reason : Blood Pressure : */* mmHG Vent. Rate : 101 BPM Atrial Rate : 101 BPM P-R Int : 192 ms QRS Dur : 66 ms QT Int : 350 ms P-R-T Axes : 80 -10 14 degrees QTcB Int : 453 ms Sinus tachycardia Inferior infarct (cited on or before 03-Aug-2023) Cannot rule out Anterior infarct (cited on or before 03-Aug-2023) Abnormal ECG When compared with ECG of 03-Aug-2023 10:24, (unconfirmed) Aberrant conduction is no longer Present Confirmed by Geo Sotomayor ([id number]) on 11/06/2023 3:44:40 PM Referred By: REFERRED SELF Confirmed By: Geo Sotomayor
--- NOTE | 2023-11-06 15:49 | Emergency Department Note ---
Impression & Plan Acute confusion, Nonparalytic stroke syndrome ED Provider Note NAME: FLORA ARRINGTON AGE: 72 SEX: F : 1950 ARRIVES VIA: Walk-In INFORMANT: Patient, ED PROVIDER(S): Alida Almodovar MD CHIEF COMPLAINT: Stroke alert HPI: This is a 72-year-old female presenting for a stroke alert. 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 She drove herself and the other patient here. She then went out to the waiting room to go to her car and states she is not member anything. She is not member how she got there, when she left the house, what happened or why she is here. She does not know what year it is. She was last known well at 1 PM. She reports no difficulty walking, talking. ROS: See above HPI for pertinent positives & negatives. A total of 10 systems reviewed and were otherwise negative. PAST MEDICAL HISTORY: See Below PAST SURGICAL HISTORY: See Below FAMILY HISTORY: See Below SOCIAL HISTORY: See Below HOME MEDICATIONS: See Below ALLERGIES: See Below VITALS: See Below PHYSICAL EXAMINATION: General: resting comfortably in no acute distress Head: Normocephalic and atraumatic Eyes: Normal inspection, extraocular muscles intact Ear, nose, throat: Normal external exam Neck: Normal range of motion Respiratory: lungs clear to auscultation bilaterally Cardiovascular: Regular rate/rhythm, no murmur GI: soft, nontender, no guarding or rebound Extremities: nontender, moves all extremities Neuro: The patient awake and alert, appropriately conversive, no focal deficits, symmetric faces, not oriented to time, NIH 1 for confusion Skin: Warm, dry, and intact MEDICAL DECISION MAKING: This is a 72-year-old female senting as a stroke alert for confusion. Patient has no neurologic deficits on exam. She only is confused here. Low concern for acute strokelike process. Stroke alert called by nursing at triage. -Dr. Heath consulted for stroke alert. He will see the patient in consultation via the telestroke cart. -Patient not a TNKase candidate based on her CT imaging of the head. -Patient is also hypertensive on arrival to over 220s systolic. This is improving on its own without intervention. Down to 170s here. Upon recheck is now 140s. -Bloodwork is reviewed showing no significant leukocytosis, anemia, electrolyte or creatinine abnormality -Upon reevaluation patient still confused about events of today but continues to have no current neurologic deficits -CT imaging of the head reveals 3.9 x 2.5 cm lesion concerning for meningioma with mild vasogenic edema and mass effect. 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 Chaparro for admission Differential diagnosis: Stroke, global transient amnesia, intracranial hemorrhage, hypertensive emergency ER treatment provided: See below Diagnostics interpreted by me: ECG: ECG independently interpreted by me with sinus tachycardia, rate of 101, normal axis, normal UT, normal QRS, normal QTc, no ST segment elevations consistent with STEMI criteria Cardiac Monitoring: An order was placed for continuous cardiac monitoring. The monitor shows a rate of 101 with sinus rhythm. Laboratory studies: As stated above and show below. Imaging studies: See below. Critical Care Note: I have personally spent 35 minutes of critical care time in the direct management of this patient. This includes bedside care, interpretation of diagnostic studies, and testing, discussion with consultants, patient, and family members, and other required patient management activities. This 35 minutes is in excess of all separately billable procedures. Past Med/Surg History Problem List (Updated 11/06/23 @ 22:54 by Alida Almodovar MD) Nonparalytic stroke syndrome (Acute) Acute confusion (Acute) Abdominal pain Abnormal ECG Chest pain Flank pain Microscopic hematuria History of nephrolithiasis History of foot fracture (~10/23/19) Stress fracture of metatarsal bone of left foot with delayed healing Chronic diarrhea Encounter for pre-operative examination Hx of papillary thyroid carcinoma Prediabetes patient is not aware and no med or diet control Lichen simplex chronicus Constipation Adverse reaction to anesthetic agent Sensorineural hearing loss (SNHL) of both ears Mild, high frequency Age related osteoporosis (Acute) Cognitive disorder (Acute) Depression with anxiety (Acute) Fibrocystic disease of breast (Acute) Gastroesophageal reflux disease (Acute) Hearing loss (Acute) Hiatal hernia (Acute) Hyperactive airway disease (Acute) Seizure disorder (Acute) Urge and stress incontinence (Acute) Vocal cord polyp (Acute) Medical History Arthritis GERD (gastroesophageal reflux disease) Prediabetes Bipolar disorder Anxiety and depression Hx of thyroid cancer Hx of seizure disorder Hypothyroidism Hyperlipidemia Hx of reduction of closed fracture (2016) Surgical History H/O lumpectomy History of tooth extraction History of cataract surgery PONV (postoperative nausea and vomiting) H/O breast biopsy Status post ORIF of fracture of ankle (1999) History of thyroidectomy History of colonoscopy Family History Mother Hypertension Osteoarthritis Father Parkinson disease Myocardial infarction Prostate cancer Other No family history of adverse response to anesthesia Denies family history of Ovarian cancer Breast cancer Colorectal cancer Social History Smoking Status: Never smoker Second Hand Exposure: No; Do You Dip or Chew Tobacco: No; Tobacco Cessation Education Requested by Patient: No Hx Alcohol Use: No Hx Substance Use: No Preferred Language: Bhutanese Communication Ability: Effective Visual Impairment: Limited Hearing Ability: Normal Coal Weigher Required: No Beliefs That Will Affect Care: None marital status: Single Current Living Situation: Alone Current Living Situation Comment: lives at [facility] current occupational status: retired How many Children do You have: 0 Other Information That Helps Us Care for You: No Feels Safe at Home: Yes Safety Concerns: Feels Safe At This Time Childhood Exposure to Second-Hand Smoke: No caffeine: Yes Dental Care, Regularly: Yes Physical Activity Frequency: 5-6 Times per Week Seatbelt Use: always Sunscreen Use: No Assistive Devices: Glasses Allergies Allergies Allergy/AdvReac Type Severity Reaction Status Date / Time aspirin Allergy Intermediate lip Verified 09/17/23 10:49 swelling as a child Home Meds Home Medications Medication Instructions Recorded Confirmed acetaminophen 500 mg tablet 500 mg PO Q6H PRN Pain 04/17/19 11/06/23 (Tylenol Extra Strength) cholecalciferol (vitamin D3) 50 2,000 units PO QAM 04/17/19 11/06/23 mcg (2,000 unit) capsule aripiprazole 2 mg tablet (Abilify) 2 mg PO QAM 05/02/22 11/06/23 lorazepam 0.5 mg tablet 0.25 mg PO DAILY PRN Anxiety 11/20/22 11/06/23 nystatin-triamcinolone 100,000 1 applic topical BID PRN Rash 01/05/23 11/06/23 unit/g-0.1 % topical cream triamcinolone acetonide 0.5 % 1 applic topical BID PRN Rash 01/05/23 11/06/23 topical ointment omeprazole 20 mg tablet,delayed 20 mg PO QAM 08/06/23 11/06/23 release bupropion HCl 150 mg 24 hr tablet, 0 mg PO QAM 11/06/23 11/06/23 extended release (Wellbutrin XL) Previous Rx's Medication Instructions Recorded nystatin 100,000 unit/gram topical 1 applic topical BID PRN rash #15 06/15/22 powder grams atorvastatin 10 mg tablet 10 mg PO QAM #90 tabs 04/17/23 mirabegron 25 mg tablet,extended 25 mg PO DAILY #30 tabs 10/24/23 release 24 hr (Myrbetriq) levothyroxine 137 mcg tablet 137 mcg PO QAM #90 tabs 10/31/23 Results & Data (ED) Vital Signs Vital Signs - 24 hr 11/06/23 14:02 11/06/23 14:50 11/06/23 15:02 Temperature 36.4 C L Temperature Source Temporal Artery Scan Pulse Rate 106 H 101 H Pulse Rate [Apical] 99 H Pulse Rhythm Regular Pulse Rhythm [Apical] Regular Pulse Strength Normal Pulse Strength [Apical] Normal Respiratory Rate 20 20 Respiratory Effort / Characteristics Non-Labored Spontaneous Non-Labored Spontaneous Respiratory Depth Normal Normal Respiratory Pattern Regular Blood Pressure 220/99 H Blood Pressure [Right Arm] 178/88 H Blood Pressure Mean 139 Blood Pressure Mean [Right Arm] 118 Blood Pressure Position [Right Arm] Sitting Pulse Oximetry 93 96 Oxygen Delivery Method Room Air Room Air Sepsis Recent Fever Within 48 Hours No Sepsis New/Unexplained Change in Mental Status N/A Sepsis Action Taken by Nursing No Action Required Laboratory Data 11/06/23 14:25 11/06/23 14:25 Lab Results 11/06/23 11/06/23 11/06/23 Range/Units 14:17 14:25 14:32 WBC 8.29 (4.8-10.8) K/ul RBC 5.37 (4.20-5.40) M/uL Hgb 14.9 (12.0-16.0) g/dl Hct 45.5 (37.0-47.0) % MCV 84.7 (80.0-100.0) fL MCH 27.7 (25.0-34.0) pg MCHC 32.7 (32.0-36.0) g/dL RDW Std Deviation 42.5 (36.4-46.3) fL RDW Coeff of Nehemiah 13.8 (11.5-14.5) % Plt Count 277 (130-400) K/uL MPV 10.9 (9.4-12.4) fL Immature Gran % (Auto) 0.4 % Neut % (Auto) 59.4 % Lymph % (Auto) 27.1 % Centre % (Auto) 10.4 % Eos % (Auto) 2.3 % Baso % (Auto) 0.4 % Neut # (Auto) 4.93 (1.40-6.50) K/uL Lymph # (Auto) 2.25 (1.20-3.40) K/uL Centre # (Auto) 0.86 H (0.11-0.59) K/uL Eos # (Auto) 0.19 (0.00-0.50) K/uL Baso # (Auto) 0.03 (0.00-0.20) K/uL Immature Gran # (Auto) 0.03 (0.01-0.20) K/uL PT 10.5 (9.0-12.0) Seconds INR 1.0 (0.9-1.1) APTT 28 (21-31) Seconds PTT Ratio 1.0 Sodium 140 (136-145) mmol/L Potassium 3.5 (3.5-5.1) mmol/L Chloride 105 (98-107) mmol/L Carbon Dioxide 28 (21-32) mmol/L Anion Gap 7 (3-11) BUN 15 (6-23) mg/dl Creatinine 0.64 (0.6-1.2) mg/dl Est Cr Clr Drug Dosing 77.4 ml/min Est GFR ( Amer) 101.9 ml/min Est GFR (Non-Af Amer) 87.9 ml/min BUN/Creatinine Ratio 23.4 H (10-20) Glucose 123 H (70-99(Fasting)) mg/dl POC Glucose 127 H (70-99) mg/dl Calcium 9.1 (8.6-10.3) mg/dl Magnesium 1.9 (1.7-2.4) mg/dl Total Bilirubin 0.3 (0.2-1.0) mg/dl AST 14 (13-39) U/L ALT 21 (7-52) U/L Alkaline Phosphatase 81 (34-104) U/L Troponin I High Sens 4.5 (0-14) pg/ml Total Protein 6.8 (6.0-8.3) gm/dl Albumin 4.5 (3.4-5.0) gm/dl Globulin 2.3 L (2.5-4.0) gm/dl Albumin/Globulin Ratio 2.0 (0.9-2) Blood Type O Positive Antibody Screen NEGATIVE Administered Medications Discontinued Medications Gadobutrol (Gadobutrol 65ml Vial) 8 ml IV ONCE ONE Stop: 11/06/23 20:38 Last Admin: 11/06/23 20:38 Dose: 8 ml Documented By: Ioversol (Optiray 320 125ml) 116 ml IV ONCE ONE Stop: 11/06/23 14:36 Last Admin: 11/06/23 14:36 Dose: 116 ml Documented By: IDA Imaging Data Radiologist's Impression: Head CT 11/06/23 14:19 CT OF THE HEAD WITHOUT CONTRAST CLINICAL HISTORY: neuro deficit, acute stroke suspected COMPARISON STUDY: No previous studies for comparison. CT DOSE: 1115.87 mGy.cm TECHNIQUE: Helical axial images of the head were obtained without IV contrast. Automated exposure control was utilized for the study. A dose lowering technique was utilized adhering to the principles of ALARA. FINDINGS: There is no acute intracranial hemorrhage. Note is made of a CSF attenuation 7.9 x 5 cm abnormality which appears to communicate with the atrium of the right lateral ventricle. There is mild ventricular dilatation. The basal cisterns are patent. Note is made of a hyperdense 3.9 x 2.5 cm extra-axial density overlying the posterior aspect the right cerebellar hemisphere on image 8 of 20. There is mild adjacent hypodensity. There is mild mass effect with slight effacement of the fourth ventricle. There are no findings to suggest acute dural sinus thrombosis or acute territorial infarct. IMPRESSION: 1. No acute intracranial hemorrhage. 2. 3.9 x 2.5 cm hyperdense extra-axial lesion overlying the posterior right cerebellar hemisphere. This favors a meningioma. Adjacent hypodensity suggests mild vasogenic edema. Mild associated mass effect. An MRI of the brain with and without contrast could be obtained for further evaluation. 3. 7.9 x 5 cm CSF attenuation abnormality which appears to communicate with the atrium of the right lateral ventricle. This favors a porencephalic cyst. ACT 112: Negative or not required by law. Electronically signed by: Joey Hubbard M.D. 11/06/2023 2:58 PM Head CTA 11/06/23 14:19 CT angio head w con CLINICAL HISTORY: neuro deficit, acute stroke suspected TECHNIQUE: CT angiography of the head and neck was performed following intravenous administration of iodinated contrast. Coronal and sagittal MIPS were obtained from the axial data set and were submitted for review. Automated dose lowering techniques and/or adjustment according to patient size were utilized for this examination. All measurements were calculated based on NASCET criteria. Comparison: Comparison is made to CT head 11/06/2023 FINDINGS: CTA Head: The anterior and posterior cerebral circulations are patent. Basilar tip aneurysm measures 2 mm. Partial visualization of ventriculomegaly and marked dilation of the right occipital horn. Partial visualization of a meningioma which is better seen on CT head. IMPRESSION: 1. No occlusion, hemodynamically significant stenosis, dissection, or arteriovenous malformation in the major intracranial arteries. 2. 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 Assessment of stenosis of the internal carotid arteries is based on NASCET criteria. ACT 112: Negative or not required by law. Electronically signed by: Juan Manuel Fischer M.D. 11/06/2023 3:04 PM Neck CTA 11/06/23 14:19 NECK CTA HISTORY: neuro deficit, acute stroke suspected TECHNIQUE: Multiaxial CT images of the neck were performed following the intravenous administration of contrast to evaluate the major cervical vessels. 3D/MIP images were also obtained. Sagittal and coronal reformats were reviewed. All measurements were calculated based on NASCET criteria. A dose lowering technique was utilized adhering to the principles of ALARA. COMPARISON STUDY: None. FINDINGS: The aortic arch and proximal great vessels are widely patent. There is no significant stenosis, occlusion, or dissection identified within the bilateral common carotid, internal carotid, or vertebral arteries. IMPRESSION: No significant stenosis, occlusion, or dissection identified within the carotid or vertebral arteries. ACT 112: Negative or not required by law. Electronically signed by: Brian Lucero M.D. 11/06/2023 3:00 PM Discharge Plan Visit Data Chief Complaint: Confusion Stated Complaint: CONFUSION ED Provider: Alida Almodovar Discharge Problem: Acute confusion, Nonparalytic stroke syndrome Patient Disposition: Admitted As Inpatient Discharge Instructions Interventions: ED Discharge Assessment Last Done: 11/06/23 16:58
[2023-11-06 15:51] LABS: Troponin I High Sensitivity 4.5 pg/ml (0-14)
[2023-11-06] MEDS: GADOBUTROL 65ML VIAL IV ONE (20:38)
[2023-11-06] MEDS ORDERED: LORazepam 0.5 MG TAB PO PRN (21:50)
[2023-11-06] MEDS ORDERED: ACETAMINOPHEN 500 MG TAB PO PRN (21:50)
[2023-11-06] MEDS ORDERED: NYSTATIN POWDER 15GM BTL EXT PRN (21:50)
--- NOTE | 2023-11-06 23:10 | Magnetic Resonance Report ---
Exam(s): MRI HEAD W/WO Contrast IV Amt: 8cc gadavist EXAM: MR Head Without and With Intravenous Contrast CLINICAL HISTORY: Reason for exam: transient global amnesia, meningioma on CT. TECHNIQUE: Magnetic resonance images of the head/brain without and with intravenous contrast in multiple planes. CONTRAST: Patient received 8cc gadavist of IV contrast COMPARISON: Prior head CT from November 06, 2023. FINDINGS: Brain: There is a dural based brightly enhancing soft tissue mass overlying the right cerebellum, measuring 38.8 x 29.7 x 29.6 mm with moderate vasogenic edema of the surrounding cerebellum. Findings concerning for remote ischemic injury of the right temporal and occipital lobes with significant loss of brain parenchyma. No hemorrhage. No acute infarct. Ventricles: There is a massive dilation of the right lateral ventricle Bones/joints: Unremarkable. No acute fracture. Sinuses: Unremarkable as visualized. No acute sinusitis. Mastoid air cells: Unremarkable as visualized. No mastoid effusion. Orbits: Bilateral lens replacements. IMPRESSION: There is a brightly enhancing dural based soft tissue mass overlying the right cerebellum measuring 38.8 x 29.7 x 29.6 mm which likely represents a meningioma with moderate surrounding vasogenic edema. Electronically signed by: Liz Plasencia MD 11/06/23 23:09 PM
[2023-11-06 23:49] VITALS: RESP 16
--- NOTE | 2023-11-07 01:22 | History & Physical Report ---
Date of Service November 06, 2023 Assessment & Plan (1) Transient global amnesia: Plan: Expected resolution over the next 24 hours Recommendations from telestroke: MRI brain Hold sedatives TSH, ammonia, Chem 20 tox screen EEG B12 and B1 levels (2) Meningioma: Plan: Incidental finding on CT - not suspected to be causing her symptoms Brain MRI w/wo IV contrast recommended to further evaluate Telestroke neurologist recommended EEG and outpatient neurosurgical follow up (3) Hypothyroidism: Plan: TSH with AM labs Continue levothyroxine (4) GERD (gastroesophageal reflux disease): Plan: Switch omeprazole to pantoprazole Plan VTE Prophylaxis - low risk Diet - heart healthy Disposition - observation to med/tele Admission and Anticipated Discharge Date Admission Date: November 06, 2023 History of Present Illness Chief Complaint: Memory loss Primary Care Provider: DO Mariaelena Darden Monicasummer is a 72 year old female who presents to the ER with memory loss. She brought a friend to the ER. Sudden onset severe confusion, memory loss and was unsure why she was here. She was unable to remember leaving her house. When seen for admission she cannot remember having a CT scan. Telestroke in the ER - suspected transient global amnesia. She is currently orientated x3. No extremity weakness, change in speech/vision/hearing. Allergies Allergy/AdvReac Type Severity Reaction Status Date / Time aspirin Allergy Intermediate lip Verified 09/17/23 10:49 swelling as a child Home Medications Medication Instructions Recorded Confirmed Type acetaminophen 500 mg tablet 500 mg PO Q6H PRN Pain 04/17/19 11/06/23 History (Tylenol Extra Strength) cholecalciferol (vitamin D3) 50 2,000 units PO QAM 04/17/19 11/06/23 History mcg (2,000 unit) capsule aripiprazole 2 mg tablet (Abilify) 2 mg PO QAM 05/02/22 11/06/23 History nystatin 100,000 unit/gram topical 1 applic topical BID PRN rash #15 06/15/22 11/06/23 Rx powder grams lorazepam 0.5 mg tablet 0.25 mg PO DAILY PRN Anxiety 11/20/22 11/06/23 History nystatin-triamcinolone 100,000 1 applic topical BID PRN Rash 01/05/23 11/06/23 History unit/g-0.1 % topical cream triamcinolone acetonide 0.5 % 1 applic topical BID PRN Rash 01/05/23 11/06/23 History topical ointment atorvastatin 10 mg tablet 10 mg PO QAM #90 tabs 04/17/23 11/06/23 Rx omeprazole 20 mg tablet,delayed 20 mg PO QAM 08/06/23 11/06/23 History release mirabegron 25 mg tablet,extended 25 mg PO DAILY #30 tabs 10/24/23 11/06/23 Rx release 24 hr (Myrbetriq) levothyroxine 137 mcg tablet 137 mcg PO QAM #90 tabs 10/31/23 11/06/23 Rx bupropion HCl 150 mg 24 hr tablet, 0 mg PO QAM 11/06/23 11/06/23 History extended release (Wellbutrin XL) Past Med/Surg History Problem List (Updated 11/07/23 @ 01:21 by Vickey Chaparro MD) Meningioma Transient global amnesia Nonparalytic stroke syndrome (Acute) Acute confusion (Acute) Abdominal pain Abnormal ECG Chest pain Flank pain Microscopic hematuria History of nephrolithiasis History of foot fracture (~10/23/19) Stress fracture of metatarsal bone of left foot with delayed healing Chronic diarrhea Encounter for pre-operative examination Hx of papillary thyroid carcinoma Prediabetes patient is not aware and no med or diet control Lichen simplex chronicus Constipation Adverse reaction to anesthetic agent Sensorineural hearing loss (SNHL) of both ears Mild, high frequency Age related osteoporosis (Acute) Cognitive disorder (Acute) Depression with anxiety (Acute) Fibrocystic disease of breast (Acute) Gastroesophageal reflux disease (Acute) Hearing loss (Acute) Hiatal hernia (Acute) Hyperactive airway disease (Acute) Seizure disorder (Acute) Urge and stress incontinence (Acute) Vocal cord polyp (Acute) Medical History Arthritis GERD (gastroesophageal reflux disease) Prediabetes Bipolar disorder Anxiety and depression Hx of thyroid cancer Hx of seizure disorder Hypothyroidism Hyperlipidemia Hx of reduction of closed fracture (2016) Surgical History H/O lumpectomy History of tooth extraction History of cataract surgery PONV (postoperative nausea and vomiting) H/O breast biopsy Status post ORIF of fracture of ankle (1999) History of thyroidectomy History of colonoscopy Family History Mother Hypertension Osteoarthritis Father Parkinson disease Myocardial infarction Prostate cancer Other No family history of adverse response to anesthesia Denies family history of Ovarian cancer Breast cancer Colorectal cancer Social History Smoking Status: Never smoker Second Hand Exposure: No; Do You Dip or Chew Tobacco: No; Tobacco Cessation Education Requested by Patient: No Hx Alcohol Use: No Hx Substance Use: No Preferred Language: Australian Communication Ability: Effective Visual Impairment: Limited Hearing Ability: Normal Archivist [employer] Required: No Beliefs That Will Affect Care: None marital status: Single Current Living Situation: Alone Current Living Situation Comment: lives at [facility] current occupational status: retired How many Children do You have: 0 Other Information That Helps Us Care for You: No Feels Safe at Home: Yes Safety Concerns: Feels Safe At This Time Childhood Exposure to Second-Hand Smoke: No caffeine: Yes Dental Care, Regularly: Yes Physical Activity Frequency: 5-6 Times per Week Seatbelt Use: always Sunscreen Use: No Assistive Devices: Glasses Review of Systems Review of Systems: All systems reviewed & are unremarkable except as noted in HPI & below Physical Exam Constitutional: WD/WN, vitals as above Eyes: PERRL, conjunctivae normal, anicteric sclerae ENMT: external ear and nose normal, oropharynx normal Respiratory: normal respiratory effort, lungs clear to auscultation Cardiovascular: RRR, no murmur, no edema Gastrointestinal (Abdomen): normal bowel sounds, soft, nontender, no hepatosplenomegaly Musculoskeletal: no cyanosis or clubbing, extremities motor strength 5/5 Skin: no rashes, warm and dry Neurologic: moves all extremities and awake; no focal motor deficits and not confused Cranial Nerves: PERRL, EOM intact bilaterally, normal facial strength, tongue midline, able to rotate head bilaterally, able to elevate shoulders bilaterally, no nystagmus and symmetric palate elevation Psychiatric: A+Ox3, euthymic affect Results & Data Results & Data Vital Signs (Past 12 Hours) Vital Signs Temp Pulse Pulse Pulse Resp BP BP 11/06/23 23:34 98 H 11/06/23 22:49 36.5 C 88 16 115/69 11/06/23 22:02 11/06/23 19:41 36.9 C 101 H 18 144/73 H 11/06/23 17:42 36.7 C 76 16 156/81 H 11/06/23 17:35 36.7 C 91 H 20 144/77 H 11/06/23 16:38 95 H 20 164/98 H 11/06/23 15:02 101 H 11/06/23 14:50 99 H 20 178/88 H 11/06/23 14:02 36.4 C L 106 H 20 220/99 H Pulse Ox O2 Del Method 11/06/23 23:34 11/06/23 22:49 95 Room Air 11/06/23 22:02 Room Air 11/06/23 19:41 94 Room Air 11/06/23 17:42 96 Room Air 11/06/23 17:35 96 Room Air 11/06/23 16:38 96 Room Air 11/06/23 15:02 11/06/23 14:50 96 Room Air 11/06/23 14:02 93 Room Air Laboratory Results Abnormal lab results 11/06/23 11/06/23 Range/Units 14:17 14:25 [place] # (Auto) 0.86 H (0.11-0.59) K/uL BUN/Creatinine Ratio 23.4 H (10-20) Glucose 123 H (70-99(Fasting)) mg/dl POC Glucose 127 H (70-99) mg/dl Globulin 2.3 L (2.5-4.0) gm/dl Diagnostic Findings CT OF THE HEAD WITHOUT CONTRAST CLINICAL HISTORY: neuro deficit, acute stroke suspected COMPARISON STUDY: No previous studies for comparison. CT DOSE: 1115.87 mGy.cm TECHNIQUE: Helical axial images of the head were obtained without IV contrast. Automated exposure control was utilized for the study. A dose lowering technique was utilized adhering to the principles of ALARA. FINDINGS: There is no acute intracranial hemorrhage. Note is made of a CSF attenuation 7.9 x 5 cm abnormality which appears to communicate with the atrium of the right lateral ventricle. There is mild ventricular dilatation. The basal cisterns are patent. Note is made of a hyperdense 3.9 x 2.5 cm extra-axial density overlying the posterior aspect the right cerebellar hemisphere on image 8 of 20. There is mild adjacent hypodensity. There is mild mass effect with slight effacement of the fourth ventricle. There are no findings to suggest acute dural sinus thrombosis or acute territorial infarct. IMPRESSION: 1. No acute intracranial hemorrhage. 2. 3.9 x 2.5 cm hyperdense extra-axial lesion overlying the posterior right cerebellar hemisphere. This favors a meningioma. Adjacent hypodensity suggests mild vasogenic edema. Mild associated mass effect. An MRI of the brain with and without contrast could be obtained for further evaluation. 3. 7.9 x 5 cm CSF attenuation abnormality which appears to communicate with the atrium of the right lateral ventricle. This favors a porencephalic cyst. CT angio head w con CLINICAL HISTORY: neuro deficit, acute stroke suspected TECHNIQUE: CT angiography of the head and neck was performed following intravenous administration of iodinated contrast. Coronal and sagittal MIPS were obtained from the axial data set and were submitted for review. Automated dose lowering techniques and/or adjustment according to patient size were utilized for this examination. All measurements were calculated based on NASCET criteria. Comparison: Comparison is made to CT head 11/06/2023 FINDINGS: CTA Head: The anterior and posterior cerebral circulations are patent. Basilar tip aneurysm measures 2 mm. Partial visualization of ventriculomegaly and marked dilation of the right occipital horn. Partial visualization of a meningioma which is better seen on CT head. IMPRESSION: 1. No occlusion, hemodynamically significant stenosis, dissection, or arteriovenous malformation in the major intracranial arteries. 2. 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 NECK CTA HISTORY: neuro deficit, acute stroke suspected TECHNIQUE: Multiaxial CT images of the neck were performed following the intravenous administration of contrast to evaluate the major cervical vessels. 3D/MIP images were also obtained. Sagittal and coronal reformats were reviewed. All measurements were calculated based on NASCET criteria. A dose lowering technique was utilized adhering to the principles of ALARA. COMPARISON STUDY: None. FINDINGS: The aortic arch and proximal great vessels are widely patent. There is no significant stenosis, occlusion, or dissection identified within the bilateral common carotid, internal carotid, or vertebral arteries. IMPRESSION: No significant stenosis, occlusion, or dissection identified within the carotid or vertebral arteries. Medications Administered ER Medications Given: None ECG Rate (beats per minute): 101 Rhythm: normal sinus Findings: no acute ischemic change Comparison ECG Date: from (August 03, 2023) Change: the following changes noted (aberrant conduction is no longer present) Code Status & VTE Plan Code Status Full VTE Prophylaxis Plan VTE Prophylaxis will be ordered: No PG Care Time/CCT Total # of Minutes Spent Total Time Spent with Patient: Total time spent is greater than 50% in coordination of care (as documented) at patient's floor/unit and/or counseling patient: Coding Level of Care Code 69651 INT INP/OBS CARE 3/75MIN Diagnoses Transient global amnesia G45.4 Meningioma D32.9 Hypothyroidism E03.9 GERD (gastroesophageal reflux disease) K21.9
[2023-11-07 03:09] LABS: Appearance Urine Clear (Clear); Bacteria Urine Automated None Seen (None Seen); Bilirubin Urine Negative (Negative); Blood Urine Negative (Negative); Cast Urine Automated 0-2 /lpf (0-2); Color Urine Yellow; Epithelial Cell Urine Auto 0-2 /hpf (0-2); Glucose Urine UA Negative (Negative); Ketones Urine Negative (Negative); Leukocyte Esterase Urine 1+ (Negative); Nitrite Urine Negative (Negative); Protein Urine Negative (Negative); RBC Urine Automated 0-2 /hpf (0-2); Specific Gravity Urine 1.042 (1.000-1.030); Urobilinogen Urine Negative (Negative); WBC Urine Automated 21-50 /hpf (0-5); pH Urine 5.5 (4.5-7.5)
[2023-11-07 03:30] LABS: Amphetamines+Metham, Urine Neg (Neg); Barbiturates, Urine Neg (Neg); Benzodiazepine, Urine Neg (Neg); Cocaine, Urine Neg (Neg); Fentanyl, Urine Neg (Neg); MDMA (Ecstacy), Urine Pos (Neg); Marijuana, Urine Neg (Neg); Methadone, Urine Neg (Neg); Opiate, Urine Neg (Neg); Phencyclidine, Urine Neg (Neg)
[2023-11-07 06:12] LABS: Basophils # (auto) 0.04 K/uL (0.00-0.20); Basophils % (auto) 0.5 %; Eosinophils # (auto) 0.17 K/uL (0.00-0.50); Eosinophils % (auto) 1.9 %; Hematocrit (blood only) 45.1 % (37.0-47.0); Hemoglobin 14.7 g/dl (12.0-16.0); Immature Granulocytes # (auto) 0.03 K/uL (0.01-0.20); Immature Granulocytes % (auto) 0.3 %; Lymphocytes # (auto) 2.45 K/uL (1.20-3.40); Lymphocytes % (auto) 27.9 %; Mean Corpuscular Hemoglobin 27.6 pg (25.0-34.0); Mean Corpuscular Hgb Conc 32.6 g/dL (32.0-36.0); Mean Corpuscular Volume 84.6 fL (80.0-100.0); Mean Platelet Volume 10.7 fL (9.4-12.4); Monocytes # (auto) 0.82 K/uL (0.11-0.59); Monocytes % (auto) 9.3 %; Neutrophils # (auto) 5.27 K/uL (1.40-6.50); Neutrophils % (auto) 60.1 %; Platelet Count 265 K/uL (130-400); Red Blood Count 5.33 M/uL (4.20-5.40); White Blood Count 8.78 K/ul (4.8-10.8)
[2023-11-07] MEDS: LEVOTHYROXINE SODIUM 137 MCG TABLET PO SCH (06:13)
[2023-11-07 06:25] LABS: Albumin Globulin Ratio 1.8 (0.9-2); Albumin Level 4.2 gm/dl (3.4-5.0); BUN Creatinine Ratio 22.8 (10-20); Bilirubin,Total 0.4 mg/dl (0.2-1.0); Calcium 8.6 mg/dl (8.6-10.3); Creatinine Clr Calc Pharmacy 62.7 ml/min; Est GFR (African American) 85.5 ml/min; Est GFR (Non-African American) 73.7 ml/min; Globulin 2.4 gm/dl (2.5-4.0); Potassium 3.9 mmol/L (3.5-5.1); Total Protein 6.6 gm/dl (6.0-8.3)
[2023-11-07 06:39] LABS: Thyroid Stimulating Hormone 0.396 uIu/ml (0.300-4.500)
[2023-11-07] MEDS: PANTOprazole 40 MG TAB PO SCH (07:51)
[2023-11-07] MEDS: buPROPion XL 150 MG TABCR PO SCH (07:51)
[2023-11-07] MEDS: ARIPIprazole 1 MG/ML ORAL SOLN 150 ML BTL PO SCH (07:51)
[2023-11-07] MEDS: VIBEGRON 75 MG TAB PO SCH (07:51)
[2023-11-07] MEDS: CHOLECALCIFEROL 25 MCG (1000 UNITS) TAB PO SCH (07:51)
[2023-11-07] MEDS: ATORVASTATIN 10 MG TAB PO SCH (07:51)
--- NOTE | 2023-11-07 09:58 | Hospitalist Progress Note ---
Date of Service November 07, 2023 Assessment & Plan (1) Transient global amnesia: Plan: Expected resolution over the next 24 hours Recommendations from telestroke: MRI brain Hold sedatives TSH, ammonia, Chem 20 tox screen EEG B12 and B1 levels neuro consult (2) Meningioma: Plan: Incidental finding on CT - not suspected to be causing her symptoms Brain MRI w/wo IV contrast recommended to further evaluate Telestroke neurologist recommended EEG and outpatient neurosurgical follow up (3) Hypothyroidism: Plan: TSH with AM labs Continue levothyroxine (4) GERD (gastroesophageal reflux disease): Plan: Switch omeprazole to pantoprazole Plan VTE Prophylaxis - low risk Diet - heart healthy Disposition - observation to med/tele Admission and Anticipated Discharge Date Admission Date: November 06, 2023 Results & Data Results & Data Vital Signs (Past 12 Hours) Vital Signs Temp Pulse Pulse Resp BP Pulse Ox O2 Del Method 11/07/23 08:09 85 11/07/23 07:54 36.5 C 80 16 175/76 H 96 Room Air 11/07/23 02:17 36.7 C 98 H 16 131/73 95 Room Air 11/06/23 23:34 98 H 11/06/23 22:49 36.5 C 88 16 115/69 95 Room Air 11/06/23 22:02 Room Air PG Care Time/CCT Total # of Minutes Spent Total Time Spent with Patient: Total time spent is greater than 50% in coordination of care (as documented) at patient's floor/unit and/or counseling patient: Coding Diagnoses Transient global amnesia G45.4 Meningioma D32.9 Hypothyroidism E03.9 GERD (gastroesophageal reflux disease) K21.9
--- NOTE | 2023-11-07 11:17 | Neurology Consultation ---
Date of Consultation November 07, 2023 Assessment & Plan (1) Transient global amnesia: History of Present Illness Attending Physician: Chico Burleson MD History of Present Illness pt doing well. no deficits. mri brain with known rt side arachnoid cyst and benign appearing rt cerebellum meningioma. pt without LOC. chart reviewed. admission HP: This is a 72-year-old female presenting for a stroke alert. 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 She drove herself and the other patient here. She then went out to the waiting room to go to her car and states she is not member anything. She is not member how she got there, when she left the house, what happened or why she is here. She does not know what year it is. She was last known well at 1 PM. She reports no difficulty walking, talking. Allergies Allergy/AdvReac Type Severity Reaction Status Date / Time aspirin Allergy Intermediate lip Verified 09/17/23 10:49 swelling as a child Home Medications Medication Instructions Recorded Confirmed Type acetaminophen 500 mg tablet 500 mg PO Q6H PRN Pain 04/17/19 11/06/23 History (Tylenol Extra Strength) cholecalciferol (vitamin D3) 50 2,000 units PO QAM 04/17/19 11/06/23 History mcg (2,000 unit) capsule aripiprazole 2 mg tablet (Abilify) 2 mg PO QAM 05/02/22 11/06/23 History nystatin 100,000 unit/gram topical 1 applic topical BID PRN rash #15 06/15/22 11/06/23 Rx powder grams lorazepam 0.5 mg tablet 0.25 mg PO DAILY PRN Anxiety 11/20/22 11/06/23 History nystatin-triamcinolone 100,000 1 applic topical BID PRN Rash 01/05/23 11/06/23 History unit/g-0.1 % topical cream triamcinolone acetonide 0.5 % 1 applic topical BID PRN Rash 01/05/23 11/06/23 History topical ointment atorvastatin 10 mg tablet 10 mg PO QAM #90 tabs 04/17/23 11/06/23 Rx omeprazole 20 mg tablet,delayed 20 mg PO QAM 08/06/23 11/06/23 History release mirabegron 25 mg tablet,extended 25 mg PO DAILY #30 tabs 10/24/23 11/06/23 Rx release 24 hr (Myrbetriq) levothyroxine 137 mcg tablet 137 mcg PO QAM #90 tabs 10/31/23 11/06/23 Rx bupropion HCl 150 mg 24 hr tablet, 0 mg PO QAM 11/06/23 11/06/23 History extended release (Wellbutrin XL) Patient History Medical History Arthritis GERD (gastroesophageal reflux disease) Prediabetes Bipolar disorder Anxiety and depression Hx of thyroid cancer Hx of seizure disorder Hypothyroidism Hyperlipidemia Hx of reduction of closed fracture (2016) Surgical History H/O lumpectomy History of tooth extraction History of cataract surgery PONV (postoperative nausea and vomiting) H/O breast biopsy Status post ORIF of fracture of ankle (1999) History of thyroidectomy History of colonoscopy Family History Mother Hypertension Osteoarthritis Father Parkinson disease Myocardial infarction Prostate cancer Other No family history of adverse response to anesthesia Denies family history of Ovarian cancer Breast cancer Colorectal cancer Social History Smoking Status: Never smoker Second Hand Exposure: No; Do You Dip or Chew Tobacco: No; Tobacco Cessation Education Requested by Patient: No Hx Alcohol Use: No Hx Substance Use: No Preferred Language: Urdu Communication Ability: Effective Visual Impairment: Limited Hearing Ability: Normal Sales Enablement Analyst Required: No Beliefs That Will Affect Care: None marital status: Single Current Living Situation: Alone Current Living Situation Comment: lives at [facility] current occupational status: retired How many Children do You have: 0 Other Information That Helps Us Care for You: No Feels Safe at Home: Yes Safety Concerns: Feels Safe At This Time Childhood Exposure to Second-Hand Smoke: No caffeine: Yes Dental Care, Regularly: Yes Physical Activity Frequency: 5-6 Times per Week Seatbelt Use: always Sunscreen Use: No Assistive Devices: Glasses Exam (Neuro) Physical Exam: HEENT: normocephalic grossly Neuro: Mental: AOx4, fluent speech, normal comprehension, no apraxia, no L/R confusion, no neglect CN: Full EOM, symmetric face, Motor: No abnormal movements, normal tone, 5/5 t/o bilaterally Coord: intact DTR: 2+ sym b/l Gait: intact grossly Impression: 72 yo female with likely TGA event. Recommendations: mri reviewed, agree with outpt f/u with neurosurgery for the meningioma. EEG can be done as outpt, routine she can f/u with her PCP. TGA is benign condition and does not need further work up as inpt at this point. call again if new question. Chart reviewed I have spent more than 50% educating patient about potential diagnosis and neurological evaluation and coordinating care with patient's treatment team. Total time spent (including chart review and coordination of care): 45 min (this includes chart review). Results & Data Vital Signs (Past 12 Hours) Vital Signs Temp Pulse Pulse Resp BP Pulse Ox O2 Del Method 11/07/23 08:09 85 11/07/23 07:54 36.5 C 80 16 175/76 H 96 Room Air 11/07/23 02:17 36.7 C 98 H 16 131/73 95 Room Air 11/06/23 23:34 98 H PG Care Time/CCT Total # of Minutes Spent Total Time Spent with Patient: Total time spent is greater than 50% in coordination of care (as documented) at patient's floor/unit and/or counseling patient: Coding Level of Care Code 49120 IN/OBS CONSULT LVL 3,45M Diagnoses Transient global amnesia G45.4
[2023-11-07 11:27] VITALS: PULSE 110; TEMP 97.9
--- NOTE | 2023-11-07 13:44 | Discharge Summary ---
Discharge Summary Date of Service November 07, 2023 Principal Dx & Hospital Course #1 = Principal Diagnosis (1) Transient global amnesia: - Patient admitted with TGA that resolved overnight 11/05-11/06 - patient could not recall why she came into ED or events shortly after, but resolved - cognitively at baseline on 11/06 - telestroke on admission recommended: MRI brain, Hold sedatives, TSH, ammonia, Chem 20 tox screen, EEG, B12 and B1 levels - Electrolytes, TSH, B12, ammonia WNL - Tox screen positive for MDMA due to Wellbutrin - B1 pending upon d/c - CT and MRI showed meningioma with vasogenic edema - neurology consulted - recommending out pt follow up with neurosurgery for meningioma - EEG out patient (2) Meningioma: - Incidental finding on CT - not suspected to be causing her symptoms - Brain MRI w/wo IV contrast confirmed meningioma with moderate vasogenic edema - EEG and neurosurgical follow up outpatient (3) Hypothyroidism: - TSH WNL - Continue levothyroxine (4) GERD (gastroesophageal reflux disease): - Switch omeprazole to pantoprazole during admission - resume home medication upon discharge Plan Discharge 11/07/23 with neurosurgery and PCP followup to obtain EEG Notes For Next Care Provider Neurology during hospital admission recommended for the patient to have an EEG outpatient. Admission HPI Per Admitting Provider Mariaelena Haynes is a 72 year old female who presents to the ER with memory loss. She brought a friend to the ER. Sudden onset severe confusion, memory loss and was unsure why she was here. She was unable to remember leaving her house. When seen for admission she cannot remember having a CT scan. Telestroke in the ER - suspected transient global amnesia. She is currently orientated x3. No extremity weakness, change in speech/vision/hearing. Admission Exam Per Admitting Provider Constitutional: WD/WN, vitals as above Eyes: PERRL, conjunctivae normal, anicteric sclerae ENMT: external ear and nose normal, oropharynx normal Respiratory: normal respiratory effort, lungs clear to auscultation Cardiovascular: RRR, no murmur, no edema Gastrointestinal (Abdomen): normal bowel sounds, soft, nontender, no hepatosplenomegaly Musculoskeletal: no cyanosis or clubbing, extremities motor strength 5/5 Skin: no rashes, warm and dry Neurologic: moves all extremities and awake; no focal motor deficits and not confused Cranial Nerves: PERRL, EOM intact bilaterally, normal facial strength, tongue midline, able to rotate head bilaterally, able to elevate shoulders bilaterally, no nystagmus and symmetric palate elevation Psychiatric: A+Ox3, euthymic affect Discharge Exam The patient is awake, alert and oriented 3, well developed and well nourished, normocephalic and atraumatic, in no acute distress. Non-toxic appearing. HEENT- EOMI, mucous membranes moist. Hearing grossly intact. Heart-normal S1 and S2. No murmurs, rubs or gallops. Lungs-clear bilaterally, no respiratory distress, no accessory muscle use. Abdomen-normal bowel sounds and soft. No ascites noted. Non-tender. Extremities- no clubbing, cyanosis, or edema. Neuro - No focal motor deficits, not confused. Normal facial strength and movements. Sensation intact. Normal strength Rheumatologic-normal range of motion. Psychiatric-normal affect. Discharge Plan Discharge Items Patient Disposition: Home - Self-Care Reason For Visit: TRANSIENT GLOBAL AMNESIA Discharge Diagnosis: 1. Benign transient global amnesia 2. Meningioma; finding on CT and MRI scans Condition on Discharge: Good Activity: Resume your previous activity Non-emergency contact: Primary Care Provider Call non-emergency contact if: you have any medication questions and your symptoms worsen Follow-up/Referrals: Funmilayo Fang DO [Primary Care Provider] - Diet: Regular Addtl Attending Provider Instructions: Neurology determined that your event, known as transient global amnesia, was benign. On CT scan and MRI it was found that you have a meningioma in your brain. They recommend out patient follow up with neurosurgery with and out patient EEG for further workup. An EEG measures electrical impulses in your brain. Please follow up with your PCP regarding your recent admission and possibly for a routine EEG. Pending Studies at Discharge: Yes Studies:: Thiamine level, Urine Culture Stand-Alone Forms: [facility] Medications and DC Order Prescriptions: Continued levothyroxine 137 mcg tablet 137 mcg PO QAM Qty: 90 3RF lorazepam 0.5 mg tablet 0.25 mg PO DAILY PRN (Reason: Anxiety) nystatin 100,000 unit/gram powder 1 applic topical BID PRN (Reason: rash) Qty: 15 1RF atorvastatin 10 mg tablet 10 mg PO QAM Qty: 90 3RF mirabegron [Myrbetriq] 25 mg tablet extended release 24 hr 25 mg PO DAILY Qty: 30 2RF acetaminophen [Tylenol Extra Strength] 500 mg Tablet 500 mg PO Q6H PRN (Reason: Pain) Rx Instructions: Unable to verify OTC meds at this date/time. cholecalciferol (vitamin D3) 2,000 unit capsule 2,000 units PO QAM Rx Instructions: Unable to verify OTC meds at this date/time. aripiprazole [Abilify] 2 mg tablet 2 mg PO QAM triamcinolone acetonide 0.5 % ointment 1 applic topical BID PRN (Reason: Rash) nystatin-triamcinolone 100,000-0.1 unit/g-% cream 1 applic topical BID PRN (Reason: Rash) omeprazole 20 mg Tablet,Delayed Release (Dr/Ec) 20 mg PO QAM bupropion HCl [Wellbutrin XL] 150 mg tablet extended release 24 hr 0 mg PO QAM Rx Instructions: Last filled 05/2023 x90 day supply: Original Directions: 150mg by mouth daily Discharge Orders: Discharge Order (Routine); Ordered 11/07/23 Ordered By: Lupe Chan/Other Patient Handouts: EEG Admission Data Admit Date/Time: 11/07/23 13:09 Attending Provider: Chico Burleson Admit Provider: Vickey Chaparro Primary Care Provider: Funmilayo Fang Other Providers: Vickey Chaparro; Stephen Somers Other Interventions: Discharge Summary Assessment (RN) Last Done: 11/07/23 15:03 Hospital Stay Data Consultations 11/06/23 16:18 ED Decision to Admit Stat 11/07/23 09:41 Consult Neurology Routine Diagnostic Imagining Performed Head CT 11/06/23 14:19 CT OF THE HEAD WITHOUT CONTRAST CLINICAL HISTORY: neuro deficit, acute stroke suspected COMPARISON STUDY: No previous studies for comparison. CT DOSE: 1115.87 mGy.cm TECHNIQUE: Helical axial images of the head were obtained without IV contrast. Automated exposure control was utilized for the study. A dose lowering technique was utilized adhering to the principles of ALARA. FINDINGS: There is no acute intracranial hemorrhage. Note is made of a CSF attenuation 7.9 x 5 cm abnormality which appears to communicate with the atrium of the right lateral ventricle. There is mild ventricular dilatation. The basal cisterns are patent. Note is made of a hyperdense 3.9 x 2.5 cm extra-axial density overlying the posterior aspect the right cerebellar hemisphere on image 8 of 20. There is mild adjacent hypodensity. There is mild mass effect with slight effacement of the fourth ventricle. There are no findings to suggest acute dural sinus thrombosis or acute territorial infarct. IMPRESSION: 1. No acute intracranial hemorrhage. 2. 3.9 x 2.5 cm hyperdense extra-axial lesion overlying the posterior right cerebellar hemisphere. This favors a meningioma. Adjacent hypodensity suggests mild vasogenic edema. Mild associated mass effect. An MRI of the brain with and without contrast could be obtained for further evaluation. 3. 7.9 x 5 cm CSF attenuation abnormality which appears to communicate with the atrium of the right lateral ventricle. This favors a porencephalic cyst. ACT 112: Negative or not required by law. Electronically signed by: Joey Hubbard M.D. 11/06/2023 2:58 PM Head CTA 11/06/23 14:19 CT angio head w con CLINICAL HISTORY: neuro deficit, acute stroke suspected TECHNIQUE: CT angiography of the head and neck was performed following intravenous administration of iodinated contrast. Coronal and sagittal MIPS were obtained from the axial data set and were submitted for review. Automated dose lowering techniques and/or adjustment according to patient size were utilized for this examination. All measurements were calculated based on NASCET criteria. Comparison: Comparison is made to CT head 11/06/2023 FINDINGS: CTA Head: The anterior and posterior cerebral circulations are patent. Basilar tip aneurysm measures 2 mm. Partial visualization of ventriculomegaly and marked dilation of the right occipital horn. Partial visualization of a meningioma which is better seen on CT head. IMPRESSION: 1. No occlusion, hemodynamically significant stenosis, dissection, or arteriovenous malformation in the major intracranial arteries. 2. 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 Assessment of stenosis of the internal carotid arteries is based on NASCET criteria. ACT 112: Negative or not required by law. Electronically signed by: Juan Manuel Fischer M.D. 11/06/2023 3:04 PM Neck CTA 11/06/23 14:19 NECK CTA HISTORY: neuro deficit, acute stroke suspected TECHNIQUE: Multiaxial CT images of the neck were performed following the intravenous administration of contrast to evaluate the major cervical vessels. 3D/MIP images were also obtained. Sagittal and coronal reformats were reviewed. All measurements were calculated based on NASCET criteria. A dose lowering technique was utilized adhering to the principles of ALARA. COMPARISON STUDY: None. FINDINGS: The aortic arch and proximal great vessels are widely patent. There is no significant stenosis, occlusion, or dissection identified within the bilateral common carotid, internal carotid, or vertebral arteries. IMPRESSION: No significant stenosis, occlusion, or dissection identified within the carotid or vertebral arteries. ACT 112: Negative or not required by law. Electronically signed by: Brian Lucero M.D. 11/06/2023 3:00 PM Brain MRI 11/06/23 16:59 Exam(s): MRI HEAD W/WO Contrast IV Amt: 8cc gadavist EXAM: MR Head Without and With Intravenous Contrast CLINICAL HISTORY: Reason for exam: transient global amnesia, meningioma on CT. TECHNIQUE: Magnetic resonance images of the head/brain without and with intravenous contrast in multiple planes. CONTRAST: Patient received 8cc gadavist of IV contrast COMPARISON: Prior head CT from November 06, 2023. FINDINGS: Brain: There is a dural based brightly enhancing soft tissue mass overlying the right cerebellum, measuring 38.8 x 29.7 x 29.6 mm with moderate vasogenic edema of the surrounding cerebellum. Findings concerning for remote ischemic injury of the right temporal and occipital lobes with significant loss of brain parenchyma. No hemorrhage. No acute infarct. Ventricles: There is a massive dilation of the right lateral ventricle Bones/joints: Unremarkable. No acute fracture. Sinuses: Unremarkable as visualized. No acute sinusitis. Mastoid air cells: Unremarkable as visualized. No mastoid effusion. Orbits: Bilateral lens replacements. IMPRESSION: There is a brightly enhancing dural based soft tissue mass overlying the right cerebellum measuring 38.8 x 29.7 x 29.6 mm which likely represents a meningioma with moderate surrounding vasogenic edema. Electronically signed by: Liz Plasencia MD 11/06/23 23:09 PM Discharge Instructions Given to Patient (Per Discharging Provider) Neurology determined that your event, known as transient global amnesia, was benign. On CT scan and MRI it was found that you have a meningioma in your brain. They recommend out patient follow up with neurosurgery with and out patient EEG for further workup. An EEG measures electrical impulses in your brain. Please follow up with your PCP regarding your recent admission and possibly for a routine EEG. Supervising Physician Co-Signing Physician Notes Patient was seen and examined independently I discussed the case with Lupe EVERETT I reviewed pertinent past medical social family history and also the plan of care and agree with the plan of care. Patient was seen in company of her sister she disclosed that she did have a brain bleed when she was a baby with intractable seizures which have resolved. Likely expect plain some encephalomalacia that we see, unclear whether this event was a seizure or not, patient was seen by neurology who recommends patient have outpatient workup. This includes the meningioma with some cerebral edema. I also recommended possible referral to neurosurgery as an outpatient Awake alert appropriate patient has no concerns she does have mild strabismus is with her sister feels she is back in her normal state. Discharge outpatient workup at this time It required greater than 30 minutes to prepare this patient for discharge. Any exceptions will be noted below Total Time Total Time Spent Total Time Spent (In Minutes): 45 Coding Level of Care Code None Diagnoses Transient global amnesia G45.4 Meningioma D32.9 Hypothyroidism E03.9 GERD (gastroesophageal reflux disease) K21.9
[2023-11-07 14:51] VITALS: BP 161/90; O2SAT 95
--- NOTE | 2023-11-07 18:19 | Billing Data ---
Date of Service November 07, 2023 Coding Level of Care Code 83128 INP/OBS DISCH >30 MIN
[2023-11-08 10:20] LABS: iSTAT Creatinine 0.7 mg/dl (0.6-1.3); iSTAT Hemoglobin 15.6 g/dl (12.0-16.0); iSTAT Ionized Calcium 1.17 mmol/l (1.12-1.32); iSTAT Potassium 3.5 mmol/L (3.3-5.0)
--- NOTE | 2023-11-08 12:04 | Electrocardiogram Report ---
Test Reason : Blood Pressure : */* mmHG Vent. Rate : 100 BPM Atrial Rate : 100 BPM P-R Int : 212 ms QRS Dur : 62 ms QT Int : 352 ms P-R-T Axes : 51 -5 30 degrees QTcB Int : 454 ms Sinus rhythm with 1st degree A-V block Inferior infarct (cited on or before 03-Aug-2023) Cannot rule out Anterior infarct (cited on or before 03-Aug-2023) Abnormal ECG When compared with ECG of 06-Nov-2023 14:21, No significant change was found Confirmed by Geo Sotomayor ([id number]) on 11/08/2023 12:04:19 PM Referred By: REFERRED SELF Confirmed By: Geo Sotomayor
[2023-11-10 12:12] LABS: MDA negative; MDEA negative; MDMA (Ecstasy) Urine, Confirm negative
== END 2023-11-07 15:14 | disposition home or self-care (01) ==
LOC: ED 14:00 → 2N 14:00 → SUATTDRO 16:10 → 2N 16:58